=== PATIENT | male | born 1935 | race African-American/Black ===

== ENCOUNTER 2016-08-06 21:00 | Inpatient (IN) | payer OTHER ==
[~2016-08-06] VITALS: Ht 170.2 cm; Wt 88.0 kg
[~2016-08-06 21:00] MED LIST: CHOL100026 PO; FOLI-43 PO; OMEP20CA10 PO; VITAMIN B PO
[2016-08-06 21:46] LABS: BASOPHILS % 0.8 % (0.0-2.0); HEMATOCRIT. 46.6 % (42.0-52.0); HEMOGLOBIN. 15.6 g/dL (14.0-18.0); LYMPHOCYTES % 20.4 % (20.0-50.0); MEAN CORPUSCULAR HEMOGLOBIN 30.2 pg (28.0-32.0); MEAN CORPUSCULAR HGB CONC 33.4 g/dL (31.0-37.0); MEAN CORPUSCULAR VOLUME 90.3 fL (80.0-94.0); MEAN PLATELET VOLUME 9.4 fl (7.4-10.4); MONOCYTES % 8.9 % (2.0-8.0); NEUTROPHILS % 68.9 % (40.0-76.0); PLATELET 124 x1000/uL (130-400); RED BLOOD CELL COUNT 5.16 mill/uL (4.7-6.1); RED CELL DISTRIBUTION WIDTH 16.2 % (11.6-14.6); WHITE BLOOD COUNT 5.1 x1000/uL (4.5-11.0)
[2016-08-06 21:47] LABS: CHLORIDE 96 mEq/L (98-107)
[2016-08-06 21:49] LABS: INDEX HEMOLYSI 1 (1-3); INDEX ICTERIC 1 (1-4); INDEX LIPEMIC 1 (1-3)
[2016-08-06 21:50] LABS: INR 2.7; PROTHROMBIN TIME 27.8 sec
[2016-08-06 21:59] LABS: ALANINE AMINOTRANSFERASE 46 IU/L (13-61); ALBUMIN 3.3 g/dL (3.4-5.0); ANION GAP 16; CALCIUM 8.7 mg/dL (8.5-10.1); CARBON DIOXIDE 21 mEq/L (21-32); LIPASE 390 IU/L (73-393); NT PRO B-TYPE NATRIURETIC PEP 10496 pg/mL (5-125); TROPONIN I 0.05 ng/mL (0.00-0.04); UREA NITROGEN BLOOD 22 mg/dL (7-21); eGFR 55 mL/min (>60)
[2016-08-06] MEDS ORDERED: LORAZEPAM 1MG TABLET PO ONE (22:15)
[2016-08-06] MEDS ORDERED: FUROSEMIDE 40MG/4ML VIAL IVP ONE (22:15)
[2016-08-06] MEDS ORDERED: ASPIRIN 81MG TABLET PO ONE (23:15)
[2016-08-07] MEDS ORDERED: LOSA25TA12 PO (02:41)
[2016-08-07] MEDS ORDERED: WARF5TAB73 PO (02:41)
[2016-08-07] MEDS ORDERED: CARV3.1242 PO (02:41)
[2016-08-07] MEDS ORDERED: FURO40TA5 PO (02:41)
[2016-08-07] MEDS ORDERED: ASPI-1035 PO (02:41)
[2016-08-07 03:00] VITALS: BP 101/75
[2016-08-07] MEDS ORDERED: ACETAMINOPHEN 325MG TABLET PO PRN (03:00)
[2016-08-07] MEDS: IPRATROPIUM/ALBUTEROL 0.5-3(2.5)MG/3ML NEB HHN SCH ×6 (04:53→20:58)
[2016-08-07] MEDS ORDERED: [UNRECOGNIZED DRUG - OTHER] PO (07:25)
[2016-08-07] MEDS ORDERED: WARF4TAB39 PO (07:25)
[2016-08-07 08:00] VITALS: BP 100/68
[2016-08-07] MEDS: CHOLECALCIFEROL (D3) 1000 UNIT TABLET PO SCH (08:55)
[2016-08-07] MEDS: CARVEDILOL 3.125 MG TABLET PO SCH ×2 (08:55→17:00)
[2016-08-07] MEDS: FOLIC ACID 1MG TABLET PO SCH (08:55)
[2016-08-07] MEDS: ASPIRIN 81MG EC TABLET PO SCH (08:55)
[2016-08-07] MEDS: LOSARTAN POTASSIUM 25 MG TABLET PO SCH (08:56)
[2016-08-07] MEDS: FAMOTIDINE 20MG TABLET PO SCH (08:59)
[2016-08-07] MEDS ORDERED: OMEPRAZOLE 20MG CAPSULE EXTENDED RELEASE PO SCH (09:00)
[2016-08-07] MEDS ORDERED: FUROSEMIDE 40MG/4ML VIAL IVP SCH (09:00)
[2016-08-07 12:00] VITALS: BP 95/72
[2016-08-07] MEDS ORDERED: AMIO200T39 PO (12:25)
[2016-08-07] MEDS ORDERED: CLONIDINE 0.1MG TABLET PO PRN (13:00)
[2016-08-07 16:00] VITALS: BP 101/84
[2016-08-07] MEDS: POTASSIUM CHLORIDE 20MEQ TABLET SR PO SCH (17:19)
[2016-08-07] MEDS: FUROSEMIDE 40MG/4ML VIAL IVP SCH (17:20)
[2016-08-07] MEDS ORDERED: WARFARIN SODIUM 2.5MG TABLET PO NR (18:00)
[2016-08-07 20:00] VITALS: BP 100/72
[2016-08-08] VITALS: BP 107/78
[2016-08-08] MEDS: IPRATROPIUM/ALBUTEROL 0.5-3(2.5)MG/3ML NEB HHN SCH ×6 (00:53→20:23)
[2016-08-08] MEDS ORDERED: LORAZEPAM 1MG TABLET PO NR (01:15)
[2016-08-08 04:00] VITALS: BP 103/77
[2016-08-08 05:48] LABS: D-DIMER 0.45 mg/L FEU (<0.50); INR 2.5; PROTHROMBIN TIME 26.3 sec
[2016-08-08] MEDS: FUROSEMIDE 40MG/4ML VIAL IVP SCH ×2 (06:20→16:42)
[2016-08-08 07:07] LABS: CHLORIDE 96 mEq/L (98-107); INDEX HEMOLYSI 1 (1-3); INDEX ICTERIC 1 (1-4); INDEX LIPEMIC 1 (1-3)
[2016-08-08 07:20] LABS: ALANINE AMINOTRANSFERASE 39 IU/L (13-61); ANION GAP 15; CALCIUM 8.4 mg/dL (8.5-10.1); CARBON DIOXIDE 27 mEq/L (21-32); CREATINE KINASE 226 IU/L (39-308); HDL CHOLESTEROL 42 mg/dL (40-59); LDL CHOLESTEROL 82 mg/dL (5-100); MAGNESIUM 2.1 mg/dL (1.8-2.4); NT PRO B-TYPE NATRIURETIC PEP 10863 pg/mL (5-125); TRIGLYCERIDE 46 mg/dL (0-150); TROPONIN I 0.05 ng/mL (0.00-0.04); UREA NITROGEN BLOOD 21 mg/dL (7-21); eGFR 47 mL/min (>60)
[2016-08-08 07:23] LABS: BASOPHILS % 0.9 % (0.0-2.0); EOSINOPHILS % 1.3 % (0.0-5.0); HEMATOCRIT. 45.7 % (42.0-52.0); HEMOGLOBIN. 15.1 g/dL (14.0-18.0); MEAN CORPUSCULAR HGB CONC 33.1 g/dL (31.0-37.0); MEAN CORPUSCULAR VOLUME 90.7 fL (80.0-94.0); MONOCYTES % 10.6 % (2.0-8.0); NEUTROPHILS % 66.2 % (40.0-76.0); RED BLOOD CELL COUNT 5.04 mill/uL (4.7-6.1); RED CELL DISTRIBUTION WIDTH 16.1 % (11.6-14.6); WHITE BLOOD COUNT 5.2 x1000/uL (4.5-11.0)
[2016-08-08 07:50] LABS: DIFFERENTIAL COMMENT 1
[2016-08-08 08:00] VITALS: BP 128/88
[2016-08-08] MEDS: FOLIC ACID 1MG TABLET PO SCH (08:56)
[2016-08-08] MEDS: CHOLECALCIFEROL (D3) 1000 UNIT TABLET PO SCH (08:56)
[2016-08-08] MEDS: LOSARTAN POTASSIUM 25 MG TABLET PO SCH (08:56)
[2016-08-08] MEDS: FAMOTIDINE 20MG TABLET PO SCH (08:56)
[2016-08-08] MEDS: ASPIRIN 81MG EC TABLET PO SCH (08:56)
[2016-08-08] MEDS: CARVEDILOL 3.125 MG TABLET PO SCH ×2 (08:57→16:41)
[2016-08-08] MEDS: POTASSIUM CHLORIDE 20MEQ TABLET SR PO SCH ×2 (09:46→16:44)
[2016-08-08 11:40] LABS: PLATELET 81 x1000/uL (130-400)
[2016-08-08 12:00] VITALS: BP_SYST 112; BP_SYST 94; BP_DIAS 56; BP_DIAS 83
[2016-08-08 17:28] VITALS: BP 91/67
[2016-08-08] MEDS ORDERED: WARFARIN SODIUM 2.5MG TABLET PO NR (18:00)
[2016-08-08 20:00] VITALS: BP 93/70
[2016-08-08] MEDS: TEMAZEPAM 15MG CAPSULE PO PRN (22:12)
[2016-08-09] VITALS: BP 90/69
[2016-08-09] MEDS: IPRATROPIUM/ALBUTEROL 0.5-3(2.5)MG/3ML NEB HHN SCH ×6 (00:08→19:40)
[2016-08-09 04:00] VITALS: BP 91/66
[2016-08-09] MEDS: FUROSEMIDE 40MG/4ML VIAL IVP SCH ×2 (06:21→17:37)
[2016-08-09 06:26] LABS: INR 2.4; PROTHROMBIN TIME 24.9 sec
[2016-08-09 06:48] LABS: BASOPHILS % 1.1 % (0.0-2.0); EOSINOPHILS % 3.1 % (0.0-5.0); HEMATOCRIT. 45.4 % (42.0-52.0); HEMOGLOBIN. 15.1 g/dL (14.0-18.0); LYMPHOCYTES % 20.5 % (20.0-50.0); MEAN CORPUSCULAR HEMOGLOBIN 30.1 pg (28.0-32.0); MEAN CORPUSCULAR HGB CONC 33.3 g/dL (31.0-37.0); MEAN CORPUSCULAR VOLUME 90.3 fL (80.0-94.0); MONOCYTES % 10.7 % (2.0-8.0); NEUTROPHILS % 64.6 % (40.0-76.0); RED BLOOD CELL COUNT 5.03 mill/uL (4.7-6.1); RED CELL DISTRIBUTION WIDTH 15.7 % (11.6-14.6); WHITE BLOOD COUNT 4.9 x1000/uL (4.5-11.0)
[2016-08-09 07:23] LABS: CHLORIDE 98 mEq/L (98-107); INDEX HEMOLYSI 1 (1-3); INDEX ICTERIC 1 (1-4); INDEX LIPEMIC 1 (1-3)
[2016-08-09 07:27] LABS: DIFFERENTIAL COMMENT 1
[2016-08-09 07:37] LABS: ALANINE AMINOTRANSFERASE 32 IU/L (13-61); ALBUMIN 3.1 g/dL (3.4-5.0); ANION GAP 13; CALCIUM 8.6 mg/dL (8.5-10.1); CARBON DIOXIDE 27 mEq/L (21-32); MAGNESIUM 2.1 mg/dL (1.8-2.4); NT PRO B-TYPE NATRIURETIC PEP 7295 pg/mL (5-125); PHOSPHORUS 3.7 mg/dL (2.5-4.9); TROPONIN I 0.05 ng/mL (0.00-0.04); UREA NITROGEN BLOOD 20 mg/dL (7-21); eGFR 47 mL/min (>60)
[2016-08-09 08:00] VITALS: BP 99/72
[2016-08-09] MEDS: CARVEDILOL 3.125 MG TABLET PO SCH ×2 (08:40→17:00)
[2016-08-09] MEDS: FAMOTIDINE 20MG TABLET PO SCH (08:41)
[2016-08-09] MEDS: CHOLECALCIFEROL (D3) 1000 UNIT TABLET PO SCH (08:41)
[2016-08-09] MEDS: FOLIC ACID 1MG TABLET PO SCH (08:41)
[2016-08-09] MEDS: ASPIRIN 81MG EC TABLET PO SCH (08:41)
[2016-08-09] MEDS: LOSARTAN POTASSIUM 25 MG TABLET PO SCH (08:41)
[2016-08-09] MEDS: POTASSIUM CHLORIDE 20MEQ TABLET SR PO SCH ×2 (08:41→17:37)
[2016-08-09 12:00] VITALS: BP 91/66
[2016-08-09] MEDS: AMIODARONE HCL 200 MG TABLET PO SCH ×2 (12:37→21:24)
[2016-08-09 16:00] VITALS: BP 107/62
[2016-08-09] MEDS ORDERED: WARFARIN SODIUM 5MG TABLET PO SCH (18:00)
[2016-08-09 20:00] VITALS: BP 112/75
[2016-08-09] MEDS: TEMAZEPAM 15MG CAPSULE PO PRN (21:24)
[2016-08-10] VITALS: BP 111/88
[2016-08-10] MEDS: IPRATROPIUM/ALBUTEROL 0.5-3(2.5)MG/3ML NEB HHN SCH ×6 (00:39→20:50)
[2016-08-10 04:00] VITALS: BP 95/71
[2016-08-10 06:03] LABS: BASOPHILS % 1.2 % (0.0-2.0); EOSINOPHILS % 2.5 % (0.0-5.0); HEMOGLOBIN. 15.7 g/dL (14.0-18.0); LYMPHOCYTES % 26.4 % (20.0-50.0); MEAN CORPUSCULAR HEMOGLOBIN 30.2 pg (28.0-32.0); MEAN CORPUSCULAR HGB CONC 33.3 g/dL (31.0-37.0); MEAN CORPUSCULAR VOLUME 90.6 fL (80.0-94.0); MEAN PLATELET VOLUME 8.5 fl (7.4-10.4); MONOCYTES % 11.5 % (2.0-8.0); NEUTROPHILS % 58.4 % (40.0-76.0); PLATELET 155 x1000/uL (130-400); RED BLOOD CELL COUNT 5.19 mill/uL (4.7-6.1); RED CELL DISTRIBUTION WIDTH 16.1 % (11.6-14.6); WHITE BLOOD COUNT 4.8 x1000/uL (4.5-11.0)
[2016-08-10] MEDS: FUROSEMIDE 40MG/4ML VIAL IVP SCH (06:03)
[2016-08-10 06:19] LABS: INR 2.4; PROTHROMBIN TIME 25.4 sec
[2016-08-10 07:00] LABS: ALANINE AMINOTRANSFERASE 31 IU/L (13-61); ALBUMIN 3.1 g/dL (3.4-5.0); ANION GAP 12; CALCIUM 8.6 mg/dL (8.5-10.1); CARBON DIOXIDE 29 mEq/L (21-32); CHLORIDE 97 mEq/L (98-107); INDEX HEMOLYSI 1 (1-3); INDEX ICTERIC 1 (1-4); INDEX LIPEMIC 1 (1-3); MAGNESIUM 2.1 mg/dL (1.8-2.4); NT PRO B-TYPE NATRIURETIC PEP 8778 pg/mL (5-125); UREA NITROGEN BLOOD 20 mg/dL (7-21); eGFR 51 mL/min (>60)
[2016-08-10 08:00] VITALS: BP 93/64
[2016-08-10] MEDS: AMIODARONE HCL 200 MG TABLET PO SCH ×2 (08:26→20:37)
[2016-08-10] MEDS: CHOLECALCIFEROL (D3) 1000 UNIT TABLET PO SCH (08:26)
[2016-08-10] MEDS: FAMOTIDINE 20MG TABLET PO SCH (08:26)
[2016-08-10] MEDS: FOLIC ACID 1MG TABLET PO SCH (08:26)
[2016-08-10] MEDS: ASPIRIN 81MG EC TABLET PO SCH (08:26)
[2016-08-10] MEDS: POTASSIUM CHLORIDE 20MEQ TABLET SR PO SCH ×2 (08:26→16:36)
[2016-08-10] MEDS: CARVEDILOL 3.125 MG TABLET PO SCH (08:28)
[2016-08-10] MEDS: LOSARTAN POTASSIUM 25 MG TABLET PO SCH (08:29)
[2016-08-10 12:00] VITALS: BP 97/71
[2016-08-10 16:00] VITALS: BP_SYST 119; BP_SYST 98; BP_DIAS 65; BP_DIAS 72
[2016-08-10 20:00] VITALS: BP 96/68
[2016-08-10] MEDS: TEMAZEPAM 15MG CAPSULE PO PRN (20:48)
[2016-08-11] VITALS (7 sets, daily range): BP systolic 98–109; BP diastolic 69–79
[2016-08-11] MEDS: IPRATROPIUM/ALBUTEROL 0.5-3(2.5)MG/3ML NEB HHN SCH ×5 (01:02→16:13)
[2016-08-11 06:23] LABS: BASOPHILS % 0.8 % (0.0-2.0); EOSINOPHILS % 2.2 % (0.0-5.0); LYMPHOCYTES % 28.4 % (20.0-50.0); MEAN CORPUSCULAR HEMOGLOBIN 30.1 pg (28.0-32.0); MEAN CORPUSCULAR HGB CONC 33.3 g/dL (31.0-37.0); MEAN CORPUSCULAR VOLUME 90.3 fL (80.0-94.0); MONOCYTES % 11.4 % (2.0-8.0); NEUTROPHILS % 57.2 % (40.0-76.0); RED BLOOD CELL COUNT 5.32 mill/uL (4.7-6.1); RED CELL DISTRIBUTION WIDTH 16.3 % (11.6-14.6); WHITE BLOOD COUNT 4.8 x1000/uL (4.5-11.0)
[2016-08-11 06:24] LABS: INR 2.4; PROTHROMBIN TIME 24.9 sec
[2016-08-11 06:36] LABS: DIFFERENTIAL COMMENT 1
[2016-08-11 07:01] LABS: CALCIUM 8.9 mg/dL (8.5-10.1); MAGNESIUM 2.1 mg/dL (1.8-2.4)
[2016-08-11] MEDS: FAMOTIDINE 20MG TABLET PO SCH (09:38)
[2016-08-11] MEDS: FOLIC ACID 1MG TABLET PO SCH (09:38)
[2016-08-11] MEDS: AMIODARONE HCL 200 MG TABLET PO SCH (09:38)
[2016-08-11] MEDS: ASPIRIN 81MG EC TABLET PO SCH (09:38)
[2016-08-11] MEDS: CHOLECALCIFEROL (D3) 1000 UNIT TABLET PO SCH (09:38)
[2016-08-11] MEDS: POTASSIUM CHLORIDE 20MEQ TABLET SR PO SCH (09:38)
[2016-08-11] MEDS ORDERED: FUROSEMIDE 20MG TABLET PO SCH (11:30)
[2016-08-11] MEDS ORDERED: WARFARIN SODIUM 2.5MG TABLET PO SCH (18:00)
[2016-08-11] MEDS ORDERED: CARVEDILOL 3.125 MG TABLET PO SCH (21:00)
== END 2016-08-11 16:20 | disposition home or self-care (01) | DRG 291 ==
LOC: ER 22:27 → 7WST 23:08 → OBSVTOIN 23:08 → INTOOBSV 23:08
PROVIDERS: ADMIT Internal Medicine; ATTEND Internal Medicine
DX: I13.0 Hypertensive heart and chronic kidney disease with heart failure and stage 1 through stage 4 chronic kidney disease, or unspecified chronic kidney disease (principal); I50.23 Acute on chronic systolic (congestive) heart failure; E87.1 Hypo-osmolality and hyponatremia; I82.509 Chronic embolism and thrombosis of unspecified deep veins of unspecified lower extremity; I82.432 Acute embolism and thrombosis of left popliteal vein; N17.9 Acute kidney failure, unspecified; J44.1 Chronic obstructive pulmonary disease with (acute) exacerbation; I48.3 Typical atrial flutter; I27.2 Other secondary pulmonary hypertension; I35.0 Nonrheumatic aortic (valve) stenosis; I42.0 Dilated cardiomyopathy; R26.2 Difficulty in walking, not elsewhere classified; E78.5 Hyperlipidemia, unspecified; F10.10 Alcohol abuse, uncomplicated; I48.91 Unspecified atrial fibrillation; I70.0 Atherosclerosis of aorta; N18.9 Chronic kidney disease, unspecified; Z86.711 Personal history of pulmonary embolism; Z95.810 Presence of automatic (implantable) cardiac defibrillator; Z79.899 Other long term (current) drug therapy
CPT/HCPCS: 36415; 71010; 80048; 80053; 80061; 82550; 82553; 83690; 83735; 83880; 84100; 84443; 84484; 85025; 85379; 85610; 93005; 93970; 94640; 96374; 99285; A6261; J1940; J7620

== ENCOUNTER 2016-08-19 15:58 | Emergency (ER) | payer OTHER ==
[~2016-08-19] VITALS: Ht 170.2 cm; Wt 84.0 kg
[~2016-08-19 15:58] MED LIST changes: +AMIO200T39 PO; +ASPI-1035 PO; +CARV3.1242 PO; +LOSA25TA12 PO; +WARF5TAB73 PO
[2016-08-19 17:22] LABS: PROTHROMBIN TIME 49.1 sec
[2016-08-19 17:25] LABS: TROPONIN I 0.06 ng/mL (0.00-0.04)
[2016-08-19 17:28] LABS: INR 4.7
[2016-08-19 17:57] LABS: BASOPHILS % 0.7 % (0.0-2.0); EOSINOPHILS % 0.9 % (0.0-5.0); HEMATOCRIT. 44.9 % (42.0-52.0); LYMPHOCYTES % 18.9 % (20.0-50.0); MEAN CORPUSCULAR HGB CONC 33.5 g/dL (31.0-37.0); MEAN CORPUSCULAR VOLUME 89.6 fL (80.0-94.0); MEAN PLATELET VOLUME 8.6 fl (7.4-10.4); NEUTROPHILS % 71.5 % (40.0-76.0); RED BLOOD CELL COUNT 5.02 mill/uL (4.7-6.1); RED CELL DISTRIBUTION WIDTH 16.5 % (11.6-14.6)
[2016-08-19 18:04] LABS: PLATELET 113 x1000/uL (130-400)
[2016-08-19] MEDS ORDERED: FUROSEMIDE 40MG/4ML VIAL IVP ONE (19:00)
[2016-08-19 19:48] VITALS: BP 117/81
[2016-08-19 20:40] LABS: *AMPHETAMINES SCREEN URINE NEGATIVE (NEGATIVE); *BARBITURATES SCREEN URINE NEGATIVE (NEGATIVE); *BENZODIAZEPINES SCREEN URINE NEGATIVE (NEGATIVE); *COCAINE SCREEN URINE NEGATIVE (NEGATIVE); CANNABINOID URINE SCREEN NEGATIVE (NEGATIVE); ECSTASY MDMA SCREEN URINE NEGATIVE (NEGATIVE); METHADONE URINE SCREEN NEGATIVE (NEGATIVE); OPIATES URINE SCREEN NEGATIVE (NEGATIVE); PHENCYCLIDINE URINE SCREEN NEGATIVE (NEGATIVE)
== END 2016-08-19 20:38 | disposition home or self-care (01) ==
LOC: ER 16:48
DX: I11.0 Hypertensive heart disease with heart failure (principal); I50.9 Heart failure, unspecified; R00.0 Tachycardia, unspecified; E11.9 Type 2 diabetes mellitus without complications; Z71.89 Other specified counseling; Z79.01 Long term (current) use of anticoagulants; Z79.899 Other long term (current) drug therapy
CPT/HCPCS: 36415; 71010; 80048; 80305; 83880; 84484; 85025; 85610; 93005; 96374; 99285; J1940

== ENCOUNTER 2016-08-31 19:40 | Observation (INO) | payer OTHER ==
[~2016-08-31] VITALS: Ht 170.2 cm; Wt 82.1 kg
[2016-08-31 21:47] LABS: BASOPHILS % 0.9 % (0.0-2.0); EOSINOPHILS % 0.8 % (0.0-5.0); HEMATOCRIT. 46.3 % (42.0-52.0); HEMOGLOBIN. 15.6 g/dL (14.0-18.0); MEAN CORPUSCULAR HEMOGLOBIN 29.7 pg (28.0-32.0); MEAN CORPUSCULAR VOLUME 88.2 fL (80.0-94.0); MONOCYTES % 9.2 % (2.0-8.0); NEUTROPHILS % 63.1 % (40.0-76.0); RED BLOOD CELL COUNT 5.25 mill/uL (4.7-6.1); RED CELL DISTRIBUTION WIDTH 16.6 % (11.6-14.6)
[2016-08-31 22:02] LABS: CARBON DIOXIDE 24 mEq/L (21-32); CHLORIDE 100 mEq/L (98-107); TROPONIN I 0.04 ng/mL (0.00-0.04)
[2016-08-31 22:16] LABS: PARTIAL THROMBOPLASTIN TIME 41.9 sec (24.0-34.0); PROTHROMBIN TIME 61.6 sec
[2016-08-31 22:20] LABS: INR 5.9
[2016-08-31] MEDS ORDERED: FUROSEMIDE 40MG/4ML VIAL IVP ONE (23:00)
[2016-09-01 00:30] VITALS: BP 101/73
[2016-09-01] MEDS ORDERED: FURO-151 PO (03:52)
[2016-09-01 04:00] VITALS: BP 104/75
[2016-09-01 06:56] LABS: BASOPHILS % 0.5 % (0.0-2.0); HEMATOCRIT. 43.5 % (42.0-52.0); HEMOGLOBIN. 14.6 g/dL (14.0-18.0); LYMPHOCYTES % 27.5 % (20.0-50.0); MEAN CORPUSCULAR HEMOGLOBIN 29.5 pg (28.0-32.0); MONOCYTES % 10.6 % (2.0-8.0); RED BLOOD CELL COUNT 4.95 mill/uL (4.7-6.1); RED CELL DISTRIBUTION WIDTH 16.3 % (11.6-14.6)
[2016-09-01 07:15] LABS: PARTIAL THROMBOPLASTIN TIME 41.4 sec (24.0-34.0)
[2016-09-01 07:20] LABS: PROTHROMBIN TIME 52.3 sec
[2016-09-01 07:51] LABS: NEUTROPHILS % 60.4 % (40.0-76.0)
[2016-09-01 08:00] VITALS: BP 106/81
[2016-09-01 08:41] LABS: BG BASE EXCESS 1.6 mmol/L (-2.0-2.0); BG CARBOXYHEMOGLOBIN 1.2 % (0.5-1.5); BG DEOXYHEMOGLOBIN 9.2 % (0.0-5.0); BG FRACTION INSPIRED OXYGEN 21; BG HCO3 ACT 26.2 mmol/L (22.0-26.0); BG METHEMOGLOBIN 0.3 % (0.0-1.5); BG OXYGEN SATURATION 90.7 % (92.0-98.5); BG OXYHEMOGLOBIN 89.3 % (94.0-97.0); BG PCO2 41.2 mmHg (35.0-45.0); BG PH 7.421 (7.350-7.450); BG PO2 64.3 mmHg (75.0-100.0); BG SAMPLE SITE LEFT RADIAL; BG TOTAL HEMOGLOBIN 16.2 g/dL (12.0-18.0); BG VENT MODE ROOM AIR
[2016-09-01] MEDS: OMEPRAZOLE 20MG CAPSULE EXTENDED RELEASE PO SCH ×2 (08:49→16:26)
[2016-09-01] MEDS: AMIODARONE HCL 200 MG TABLET PO SCH (08:49)
[2016-09-01] MEDS ORDERED: FUROSEMIDE 40MG TABLET PO SCH (09:00)
[2016-09-01] MEDS: FUROSEMIDE 40MG/4ML VIAL IVP SCH ×2 (10:15→16:26)
[2016-09-01] MEDS: POTASSIUM CHLORIDE 20MEQ TABLET SR PO SCH (10:24)
[2016-09-01 12:00] VITALS: BP 93/67
[2016-09-01 16:00] VITALS: BP 110/91
[2016-09-01 20:00] VITALS: BP 100/77
[2016-09-01] MEDS ORDERED: TEMA15CA46 PO (22:45)
[2016-09-01] MEDS ORDERED: TEMAZEPAM 15MG CAPSULE PO SCH (22:51)
[2016-09-01] MEDS ORDERED: GUAIFENESIN/CODEINE 200-20MG/10ML UDC PO PRN (23:30)
[2016-09-02] VITALS: BP 110/82
[2016-09-02 04:00] VITALS: BP 120/84
[2016-09-02 05:59] LABS: PROTHROMBIN TIME 45.5 sec
[2016-09-02] MEDS: FUROSEMIDE 40MG/4ML VIAL IVP SCH (05:59)
[2016-09-02 06:05] LABS: HEMATOCRIT. 45.6 % (42.0-52.0); HEMOGLOBIN. 15.3 g/dL (14.0-18.0); MEAN CORPUSCULAR HEMOGLOBIN 29.8 pg (28.0-32.0); MEAN CORPUSCULAR VOLUME 88.9 fL (80.0-94.0); RED BLOOD CELL COUNT 5.13 mill/uL (4.7-6.1); RED CELL DISTRIBUTION WIDTH 16.6 % (11.6-14.6)
[2016-09-02 06:43] LABS: CARBON DIOXIDE 26 mEq/L (21-32); CHLORIDE 102 mEq/L (98-107)
[2016-09-02 07:07] LABS: INR 4.3
[2016-09-02 08:00] VITALS: BP 99/77
[2016-09-02 08:58] LABS: MEAN PLATELET VOLUME 64.9 fl (7.4-10.4)
[2016-09-02 08:59] LABS: EOSINOPHILS % 0.5 % (0.0-5.0); LYMPHOCYTES % 10.1 % (20.0-50.0); MONOCYTES % 0.5 % (2.0-8.0)
[2016-09-02] MEDS ORDERED: LOSARTAN POTASSIUM 25 MG TABLET PO SCH (09:00)
[2016-09-02] MEDS ORDERED: CARVEDILOL 3.125 MG TABLET PO SCH (09:00)
[2016-09-02] MEDS: OMEPRAZOLE 20MG CAPSULE EXTENDED RELEASE PO SCH (09:54)
[2016-09-02] MEDS: AMIODARONE HCL 200 MG TABLET PO SCH (09:54)
[2016-09-02] MEDS: POTASSIUM CHLORIDE 20MEQ TABLET SR PO SCH (09:54)
[2016-09-02 10:44] VITALS: BP 99/77
[2016-09-02] MEDS ORDERED: TEMAZEPAM 15MG CAPSULE PO SCH (21:00)
== END 2016-09-02 12:50 | disposition home or self-care (01) ==
LOC: ER 19:40 → 7WST 23:29 → INTOOBSV 23:29
PROVIDERS: ADMIT Internal Medicine; ATTEND Internal Medicine
DX: I11.0 Hypertensive heart disease with heart failure (principal); I50.23 Acute on chronic systolic (congestive) heart failure; I25.10 Atherosclerotic heart disease of native coronary artery without angina pectoris; I42.9 Cardiomyopathy, unspecified; D68.59 Other primary thrombophilia; E78.5 Hyperlipidemia, unspecified; R60.0 Localized edema; T45.515A Adverse effect of anticoagulants, initial encounter; Y92.89 Other specified places as the place of occurrence of the external cause
CPT/HCPCS: 36415; 36600; 71010; 80048; 80053; 82375; 82805; 83690; 83880; 84443; 84484; 85025; 85610; 85730; 93005; 93306; 96374; 96376; 99285; G0378; J1940

== ENCOUNTER 2016-10-08 16:51 | Inpatient (IN) | payer OTHER ==
[~2016-10-08] VITALS: Ht 170.2 cm; Wt 75.0 kg
[~2016-10-08 16:51] MED LIST changes: -AMIO200T39 PO; -ASPI-1035 PO; -CHOL100026 PO; +POTA20TA82 PO; +RIVA10TA PO; +TEMA15CA46 PO; -WARF5TAB73 PO
[2016-10-08] MEDS ORDERED: FUROSEMIDE 40MG/4ML VIAL IV STA (17:28)
[2016-10-08 17:51] LABS: HEMATOCRIT. 49.4 % (42.0-52.0); HEMOGLOBIN. 16.4 g/dL (14.0-18.0); MEAN CORPUSCULAR HEMOGLOBIN 29.6 pg (28.0-32.0); MEAN PLATELET VOLUME 10.1 fl (7.4-10.4); RED BLOOD CELL COUNT 5.55 mill/uL (4.7-6.1); RED CELL DISTRIBUTION WIDTH 19.5 % (11.6-14.6)
[2016-10-08 17:55] LABS: CHLORIDE 105 mEq/L (98-107); INR 1.9; PROTHROMBIN TIME 20.4 sec
[2016-10-08 18:04] LABS: CARBON DIOXIDE 26 mEq/L (21-32); TROPONIN I 0.06 ng/mL (0.00-0.04)
[2016-10-08 18:20] LABS: ATYPICAL LYMPHOCYTES 1
[2016-10-08 18:23] LABS: PLATELET ESTIMATE DECREASED
[2016-10-08 18:25] LABS: PLATELET 64 x1000/uL (130-400)
[2016-10-08 20:00] VITALS: BP 106/74
[2016-10-08 20:58] VITALS: BP 106/74
[2016-10-08] MEDS ORDERED: RIVA20TA PO (20:58)
[2016-10-08] MEDS ORDERED: FURO40TA5 PO (20:58)
[2016-10-08] MEDS ORDERED: AMLO2.5T45 PO (20:58)
[2016-10-08] MEDS ORDERED: LEVO500T89 PO (20:58)
[2016-10-08] MEDS ORDERED: ATOR20TA65 PO (20:58)
[2016-10-08] MEDS ORDERED: FUROSEMIDE 40MG/4ML VIAL IVP ONE (21:45)
[2016-10-08] MEDS ORDERED: OMEPRAZOLE 20MG CAPSULE EXTENDED RELEASE PO SCH (21:45)
[2016-10-08] MEDS ORDERED: ATORVASTATIN CALCIUM 20MG TABLET PO SCH (21:45)
[2016-10-09] VITALS: BP 100/71
[2016-10-09 04:00] VITALS: BP 102/80
[2016-10-09 06:54] LABS: BASOPHILS % 0.6 % (0.0-2.0); EOSINOPHILS % 0.6 % (0.0-5.0); HEMATOCRIT. 45.2 % (42.0-52.0); HEMOGLOBIN. 15.2 g/dL (14.0-18.0); LYMPHOCYTES % 28.5 % (20.0-50.0); MEAN CORPUSCULAR VOLUME 89.1 fL (80.0-94.0); MEAN PLATELET VOLUME 9.4 fl (7.4-10.4); MONOCYTES % 10.5 % (2.0-8.0); NEUTROPHILS % 59.8 % (40.0-76.0); RED BLOOD CELL COUNT 5.07 mill/uL (4.7-6.1)
[2016-10-09 07:14] LABS: CREATINE KINASE MB FRACTION 3.3 ng/mL (0.5-3.6); TROPONIN I 0.05 ng/mL (0.00-0.04)
[2016-10-09 08:00] VITALS: BP 103/75
[2016-10-09] MEDS ORDERED: FUROSEMIDE 80MG TABLET PO SCH (09:00)
[2016-10-09] MEDS: CARVEDILOL 3.125 MG TABLET PO SCH ×3 (09:00→21:00)
[2016-10-09] MEDS: LISINOPRIL 2.5MG TABLET PO SCH ×2 (09:00→09:45)
[2016-10-09] MEDS: OMEPRAZOLE 20MG CAPSULE EXTENDED RELEASE PO SCH ×2 (09:46→21:09)
[2016-10-09] MEDS: ATORVASTATIN CALCIUM 20MG TABLET PO SCH ×2 (09:46→21:10)
[2016-10-09 12:00] VITALS: BP 98/75
[2016-10-09 13:14] LABS: INR 1.7; PROTHROMBIN TIME 18.1 sec
[2016-10-09] MEDS ORDERED: POTASSIUM CHLORIDE 20MEQ TABLET SR PO SCH (13:30)
[2016-10-09 16:00] VITALS: BP 104/77
[2016-10-09] MEDS: FUROSEMIDE 100MG/10ML VIAL IV SCH (16:48)
[2016-10-09] MEDS ORDERED: RIVAROXABAN 15 MG TABLET PO SCH (17:00)
[2016-10-09 20:00] VITALS: BP 108/76
[2016-10-09] MEDS ORDERED: TEMAZEPAM 15MG CAPSULE PO PRN (21:00)
[2016-10-10] VITALS: BP 99/72
[2016-10-10 04:00] VITALS: BP 90/68
[2016-10-10 06:51] LABS: HEMATOCRIT. 46.9 % (42.0-52.0); HEMOGLOBIN. 15.7 g/dL (14.0-18.0); MEAN CORPUSCULAR VOLUME 89.2 fL (80.0-94.0); RED BLOOD CELL COUNT 5.25 mill/uL (4.7-6.1); RED CELL DISTRIBUTION WIDTH 18.7 % (11.6-14.6)
[2016-10-10 07:13] LABS: CHLORIDE 104 mEq/L (98-107)
[2016-10-10 07:25] LABS: CARBON DIOXIDE 27 mEq/L (21-32); TROPONIN I 0.04 ng/mL (0.00-0.04)
[2016-10-10 08:30] VITALS: BP 101/74
[2016-10-10] MEDS: LISINOPRIL 2.5MG TABLET PO SCH (09:00)
[2016-10-10] MEDS: CARVEDILOL 3.125 MG TABLET PO SCH ×2 (09:00→20:54)
[2016-10-10] MEDS: POTASSIUM CHLORIDE 20MEQ TABLET SR PO SCH ×2 (09:20→18:31)
[2016-10-10] MEDS: FUROSEMIDE 100MG/10ML VIAL IV SCH ×2 (09:20→18:31)
[2016-10-10] MEDS: OMEPRAZOLE 20MG CAPSULE EXTENDED RELEASE PO SCH ×2 (09:20→20:53)
[2016-10-10 10:48] LABS: PLATELET ESTIMATE NORMAL
[2016-10-10 12:00] VITALS: BP 92/61
[2016-10-10 16:55] VITALS: BP 98/77
[2016-10-10 20:00] VITALS: BP 98/77
[2016-10-10] MEDS: ATORVASTATIN CALCIUM 20MG TABLET PO SCH (20:53)
[2016-10-11] VITALS: BP 101/74
[2016-10-11 04:00] VITALS: BP 94/62
[2016-10-11 06:51] LABS: BASOPHILS % 0.5 % (0.0-2.0); EOSINOPHILS % 0.7 % (0.0-5.0); HEMATOCRIT. 46.4 % (42.0-52.0); HEMOGLOBIN. 15.6 g/dL (14.0-18.0); LYMPHOCYTES % 25.7 % (20.0-50.0); MEAN CORPUSCULAR HEMOGLOBIN 29.8 pg (28.0-32.0); MEAN CORPUSCULAR VOLUME 88.8 fL (80.0-94.0); MONOCYTES % 8.4 % (2.0-8.0); NEUTROPHILS % 64.7 % (40.0-76.0); RED BLOOD CELL COUNT 5.23 mill/uL (4.7-6.1); RED CELL DISTRIBUTION WIDTH 19.1 % (11.6-14.6)
[2016-10-11 08:00] VITALS: BP 105/71
[2016-10-11 08:11] LABS: CARBON DIOXIDE 24 mEq/L (21-32); CHLORIDE 104 mEq/L (98-107)
[2016-10-11] MEDS: OMEPRAZOLE 20MG CAPSULE EXTENDED RELEASE PO SCH ×2 (08:36→21:35)
[2016-10-11] MEDS: FUROSEMIDE 100MG/10ML VIAL IV SCH ×2 (08:36→17:00)
[2016-10-11] MEDS: POTASSIUM CHLORIDE 20MEQ TABLET SR PO SCH ×2 (08:37→17:00)
[2016-10-11] MEDS: LISINOPRIL 2.5MG TABLET PO SCH (08:38)
[2016-10-11] MEDS: CARVEDILOL 3.125 MG TABLET PO SCH ×2 (08:38→21:00)
[2016-10-11 08:59] LABS: PLATELET 50 x1000/uL (130-400)
[2016-10-11 10:00] LABS: MEAN PLATELET VOLUME 9.3 fl (7.4-10.4); PLATELET 72 x1000/uL (130-400)
[2016-10-11 11:56] VITALS: BP 96/59
[2016-10-11 12:21] LABS: ANTI-NUCLEAR ANTIBODIES DIRECT Negative (Negative)
[2016-10-11 16:00] VITALS: BP 92/70
[2016-10-11 20:00] VITALS: BP 98/79
[2016-10-11] MEDS: ATORVASTATIN CALCIUM 20MG TABLET PO SCH (21:36)
[2016-10-12] VITALS (7 sets, daily range): BP systolic 89–141; BP diastolic 59–100
[2016-10-12 07:10] LABS: BASOPHILS % 1.2 % (0.0-2.0); EOSINOPHILS % 0.5 % (0.0-5.0); HEMATOCRIT. 46.7 % (42.0-52.0); HEMOGLOBIN. 15.7 g/dL (14.0-18.0); LYMPHOCYTES % 22.7 % (20.0-50.0); MEAN CORPUSCULAR VOLUME 89.2 fL (80.0-94.0); MEAN PLATELET VOLUME 9.4 fl (7.4-10.4); MONOCYTES % 9.6 % (2.0-8.0); RED BLOOD CELL COUNT 5.24 mill/uL (4.7-6.1); RED CELL DISTRIBUTION WIDTH 19.5 % (11.6-14.6)
[2016-10-12] MEDS: CARVEDILOL 3.125 MG TABLET PO SCH ×2 (08:35→21:00)
[2016-10-12] MEDS: POTASSIUM CHLORIDE 20MEQ TABLET SR PO SCH ×2 (08:40→17:25)
[2016-10-12] MEDS: FUROSEMIDE 100MG/10ML VIAL IV SCH ×2 (08:40→17:25)
[2016-10-12] MEDS: OMEPRAZOLE 20MG CAPSULE EXTENDED RELEASE PO SCH ×2 (08:40→22:03)
[2016-10-12] MEDS: LISINOPRIL 2.5MG TABLET PO SCH (08:40)
[2016-10-12 09:06] LABS: DRVVT LA 78.6 sec (0.0-47.0); PTT-LA 38.9 sec (0.0-51.9)
[2016-10-12 11:10] LABS: PLATELET 99 x1000/uL (130-400); PLATELET ESTIMATE DECREASED
[2016-10-12 14:11] LABS: HLA CLASS 1 ANTIBODY Negative (Negative); IIb/IIIa ANTIBODY Positive (Negative); Ia/IIa ANTIBODY Positive (Negative); Ib/IX ANTIBODY Negative (Negative)
[2016-10-12] MEDS: ATORVASTATIN CALCIUM 20MG TABLET PO SCH (22:03)
[2016-10-13] VITALS: BP 97/71
[2016-10-13 04:00] VITALS: BP 95/68
[2016-10-13 08:00] VITALS: BP 106/78
[2016-10-13] MEDS: CARVEDILOL 3.125 MG TABLET PO SCH ×2 (09:00→21:00)
[2016-10-13] MEDS: LISINOPRIL 2.5MG TABLET PO SCH (09:00)
[2016-10-13] MEDS: FUROSEMIDE 100MG/10ML VIAL IV SCH ×2 (09:04→17:00)
[2016-10-13] MEDS: POTASSIUM CHLORIDE 20MEQ TABLET SR PO SCH ×2 (09:04→18:16)
[2016-10-13] MEDS: OMEPRAZOLE 20MG CAPSULE EXTENDED RELEASE PO SCH ×2 (09:05→21:32)
[2016-10-13 09:07] LABS: DRVVT LA CONFIRMATION 1.2 ratio (0.8-1.2); DRVVT MIX LA 52.1 sec (0.0-47.0)
[2016-10-13 09:07] LABS: IMMUNOGLOBULIN A 631 mg/dL (61-437); IMMUNOGLOBULIN G 906 mg/dL (700-1600); IMMUNOGLOBULIN M 34 mg/dL (15-143)
[2016-10-13 12:00] VITALS: BP 94/50
[2016-10-13 16:00] VITALS: BP 96/68
[2016-10-13 20:00] VITALS: BP 104/81
[2016-10-13] MEDS: ATORVASTATIN CALCIUM 20MG TABLET PO SCH (21:32)
[2016-10-13] MEDS ORDERED: FUROSEMIDE 100MG/10ML VIAL IVP NR (21:38)
[2016-10-14] VITALS: BP 100/68
[2016-10-14 04:00] VITALS: BP 101/72
[2016-10-14 06:34] LABS: CARBON DIOXIDE 27 mEq/L (21-32); CHLORIDE 102 mEq/L (98-107)
[2016-10-14 07:11] LABS: LUPUS ANTICOAG INTERPRETATION Comment: (.)
[2016-10-14] MEDS: OMEPRAZOLE 20MG CAPSULE EXTENDED RELEASE PO SCH ×2 (07:40→21:16)
[2016-10-14 08:00] VITALS: BP 108/76
[2016-10-14] MEDS: CARVEDILOL 3.125 MG TABLET PO SCH ×2 (08:58→21:00)
[2016-10-14] MEDS: FUROSEMIDE 100MG/10ML VIAL IV SCH ×2 (08:58→18:18)
[2016-10-14] MEDS: POTASSIUM CHLORIDE 20MEQ TABLET SR PO SCH ×2 (08:58→18:19)
[2016-10-14] MEDS: LISINOPRIL 2.5MG TABLET PO SCH (08:59)
[2016-10-14 10:03] LABS: INR 1.3; PROTHROMBIN TIME 13.5 sec
[2016-10-14 10:42] LABS: HEMATOCRIT. 46.8 % (42.0-52.0); HEMOGLOBIN. 15.8 g/dL (14.0-18.0); MEAN CORPUSCULAR HEMOGLOBIN 29.9 pg (28.0-32.0); RED BLOOD CELL COUNT 5.26 mill/uL (4.7-6.1); RED CELL DISTRIBUTION WIDTH 19.5 % (11.6-14.6)
[2016-10-14 10:43] LABS: NEUTROPHILS % 61.1 % (40.0-76.0); PLATELET 96 x1000/uL (130-400)
[2016-10-14 10:44] LABS: BASOPHILS % 0.5 % (0.0-2.0); EOSINOPHILS % 0.7 % (0.0-5.0); LYMPHOCYTES % 27.3 % (20.0-50.0); MONOCYTES % 10.4 % (2.0-8.0)
[2016-10-14 12:00] VITALS: BP 97/74
[2016-10-14] MEDS ORDERED: SODIUM CHLORIDE 0.9% 10ML VIAL ONE (14:26)
[2016-10-14] MEDS ORDERED: IOHEXOL-350 100 ML BOTTLE ONE (14:26)
[2016-10-14 16:00] VITALS: BP 95/69
[2016-10-14 20:00] VITALS: BP 100/74
[2016-10-14] MEDS: ATORVASTATIN CALCIUM 20MG TABLET PO SCH (21:16)
[2016-10-15] VITALS: BP 105/87
[2016-10-15 04:00] VITALS: BP 93/67
[2016-10-15 08:00] VITALS: BP 104/65
[2016-10-15] MEDS: LISINOPRIL 2.5MG TABLET PO SCH (09:00)
[2016-10-15] MEDS: CARVEDILOL 3.125 MG TABLET PO SCH ×2 (09:00→20:53)
[2016-10-15] MEDS: OMEPRAZOLE 20MG CAPSULE EXTENDED RELEASE PO SCH ×2 (09:14→20:52)
[2016-10-15] MEDS: POTASSIUM CHLORIDE 20MEQ TABLET SR PO SCH ×2 (09:14→17:11)
[2016-10-15] MEDS: FUROSEMIDE 100MG/10ML VIAL IV SCH ×2 (09:18→17:00)
[2016-10-15 11:52] VITALS: BP 104/50
[2016-10-15 16:00] VITALS: BP 88/64
[2016-10-15 20:00] VITALS: BP 99/72
[2016-10-15] MEDS: ATORVASTATIN CALCIUM 20MG TABLET PO SCH (20:52)
[2016-10-16] VITALS: BP 100/77
[2016-10-16 04:00] VITALS: BP 103/75
[2016-10-16 08:00] VITALS: BP 97/63
[2016-10-16] MEDS: CARVEDILOL 3.125 MG TABLET PO SCH ×2 (08:47→21:00)
[2016-10-16] MEDS: POTASSIUM CHLORIDE 20MEQ TABLET SR PO SCH ×2 (08:49→17:44)
[2016-10-16] MEDS: OMEPRAZOLE 20MG CAPSULE EXTENDED RELEASE PO SCH ×2 (08:49→22:14)
[2016-10-16] MEDS: LISINOPRIL 2.5MG TABLET PO SCH (08:50)
[2016-10-16] MEDS: FUROSEMIDE 100MG/10ML VIAL IV SCH ×2 (09:04→17:43)
[2016-10-16 12:00] VITALS: BP 138/84
[2016-10-16 16:00] VITALS: BP 98/62
[2016-10-16 20:00] VITALS: BP 96/72
[2016-10-16] MEDS: ATORVASTATIN CALCIUM 20MG TABLET PO SCH (22:14)
[2016-10-17] VITALS: BP 94/74
[2016-10-17 04:00] VITALS: BP 99/73
[2016-10-17 08:00] VITALS: BP 99/70
[2016-10-17] MEDS: CARVEDILOL 3.125 MG TABLET PO SCH ×2 (09:00→20:40)
[2016-10-17] MEDS: LISINOPRIL 2.5MG TABLET PO SCH (09:00)
[2016-10-17] MEDS: POTASSIUM CHLORIDE 20MEQ TABLET SR PO SCH ×2 (09:04→17:33)
[2016-10-17] MEDS: OMEPRAZOLE 20MG CAPSULE EXTENDED RELEASE PO SCH ×2 (09:04→20:41)
[2016-10-17] MEDS: FUROSEMIDE 100MG/10ML VIAL IV SCH ×2 (09:05→17:33)
[2016-10-17 12:00] VITALS: BP 97/68
[2016-10-17 16:00] VITALS: BP 100/70
[2016-10-17] MEDS ORDERED: RIVAROXABAN 15 MG TABLET PO SCH (17:00)
[2016-10-17] MEDS: ATORVASTATIN CALCIUM 20MG TABLET PO SCH (20:41)
[2016-10-18] VITALS (8 sets, daily range): BP systolic 88–97; BP diastolic 57–73
[2016-10-18] MEDS: OMEPRAZOLE 20MG CAPSULE EXTENDED RELEASE PO SCH ×2 (07:40→21:05)
[2016-10-18] MEDS: CARVEDILOL 3.125 MG TABLET PO SCH ×2 (09:00→21:00)
[2016-10-18] MEDS: LISINOPRIL 2.5MG TABLET PO SCH (09:00)
[2016-10-18] MEDS: POTASSIUM CHLORIDE 20MEQ TABLET SR PO SCH ×2 (09:52→18:20)
[2016-10-18] MEDS: FUROSEMIDE 100MG/10ML VIAL IV SCH ×2 (09:52→18:20)
[2016-10-18] MEDS ORDERED: ENOXAPARIN 30MG/0.3ML SYR SUBCUT SCH (12:00)
[2016-10-18] MEDS: ATORVASTATIN CALCIUM 20MG TABLET PO SCH (21:05)
== END 2016-10-18 22:15 | DRG 291 ==
LOC: EDBEDREQ 18:23 → ER 18:26 → 7WST 18:46 → INTOOBSV 18:46 → OBSVTOIN 18:46 → ENRESERV 18:49 → ER 19:59
PROVIDERS: ADMIT Internal Medicine; ATTEND Internal Medicine
DX: I13.0 Hypertensive heart and chronic kidney disease with heart failure and stage 1 through stage 4 chronic kidney disease, or unspecified chronic kidney disease (principal); I50.43 Acute on chronic combined systolic (congestive) and diastolic (congestive) heart failure; I48.92 Unspecified atrial flutter; D68.59 Other primary thrombophilia; I82.5Z2 Chronic embolism and thrombosis of unspecified deep veins of left distal lower extremity; I42.0 Dilated cardiomyopathy; I27.2 Other secondary pulmonary hypertension; D69.6 Thrombocytopenia, unspecified; I35.2 Nonrheumatic aortic (valve) stenosis with insufficiency; I48.0 Paroxysmal atrial fibrillation; N18.9 Chronic kidney disease, unspecified; M10.9 Gout, unspecified; K74.60 Unspecified cirrhosis of liver; K21.9 Gastro-esophageal reflux disease without esophagitis; J44.9 Chronic obstructive pulmonary disease, unspecified; I25.10 Atherosclerotic heart disease of native coronary artery without angina pectoris; E78.5 Hyperlipidemia, unspecified; D18.03 Hemangioma of intra-abdominal structures; D64.9 Anemia, unspecified; I35.0 Nonrheumatic aortic (valve) stenosis; R16.0 Hepatomegaly, not elsewhere classified; Z87.11 Personal history of peptic ulcer disease; Z86.711 Personal history of pulmonary embolism; Z79.01 Long term (current) use of anticoagulants; Z87.01 Personal history of pneumonia (recurrent); Z79.899 Other long term (current) drug therapy
CPT/HCPCS: 36415; 71010; 74178; 78216; 78582; 80048; 80053; 82550; 82553; 82784; 83605; 83690; 83735; 83880; 84484; 85025; 85049; 85379; 85610; 85613; 85732; 86022; 86038; 86157; 86334; 86803; 87040; 93005; 93970; 96374; 97116; 97163; 99285; A4216; A9558; A9560; J1650; J1940; J7040; Q9967

== ENCOUNTER 2016-10-23 11:24 | Observation (INO) | payer OTHER ==
[~2016-10-23] VITALS: Ht 170.2 cm; Wt 71.7 kg
[~2016-10-23 11:24] MED LIST changes: +AMLO2.5T45 PO; +ATOR20TA65 PO; +FURO40TA5 PO; +LEVO500T89 PO; -RIVA10TA PO; +RIVA20TA PO
[2016-10-23] MEDS ORDERED: NITROGLYCERIN OINT 1GM/INCH UDPKT TD STA (12:10)
[2016-10-23 12:51] LABS: BASOPHILS % 0.4 % (0.0-2.0); CARBON DIOXIDE 23 mEq/L (21-32); CHLORIDE 101 mEq/L (98-107); EOSINOPHILS % 0.2 % (0.0-5.0); HEMATOCRIT. 46.8 % (42.0-52.0); HEMOGLOBIN. 15.7 g/dL (14.0-18.0); MEAN CORPUSCULAR HEMOGLOBIN 30.4 pg (28.0-32.0); MEAN CORPUSCULAR VOLUME 90.5 fL (80.0-94.0); MONOCYTES % 10.5 % (2.0-8.0); NEUTROPHILS % 69.9 % (40.0-76.0); RED BLOOD CELL COUNT 5.17 mill/uL (4.7-6.1); RED CELL DISTRIBUTION WIDTH 20.1 % (11.6-14.6)
[2016-10-23 12:58] LABS: TROPONIN I 0.06 ng/mL (0.00-0.04)
[2016-10-23 13:00] LABS: INR 1.8; PROTHROMBIN TIME 19.1 sec
[2016-10-23 15:54] LABS: CLARITY URINE CLEAR (CLEAR); COLOR URINE DARK YELLOW (YELLOW); GLUCOSE URINE NEGATIVE (NEGATIVE); KETONES URINE TRACE (NEGATIVE); LEUKOCYTE ESTERASE URINE NEGATIVE (NEGATIVE); NITRITE URINE NEGATIVE (NEGATIVE); OCCULT BLOOD URINE NEGATIVE (NEGATIVE); PROTEIN URINE 2+ (NEGATIVE); SPECIFIC GRAVITY URINE 1.023 (1.005-1.030)
[2016-10-23] MEDS ORDERED: IPRATROPIUM/ALBUTEROL 0.5-3(2.5)MG/3ML NEB INH PRN (16:30)
[2016-10-23] MEDS ORDERED: ONDANSETRON HCL 4MG/2ML VIAL IV PRN (16:30)
[2016-10-23] MEDS ORDERED: ACETAMINOPHEN 325MG TABLET PO PRN (16:30)
[2016-10-23] MEDS ORDERED: HYDROCODONE/ACETAMINOPHEN 5/325MG TABLET PO PRN (16:30)
[2016-10-23] MEDS ORDERED: CLONIDINE 0.1MG TABLET PO PRN (16:30)
[2016-10-23] MEDS: POTASSIUM CHLORIDE 20MEQ TABLET SR PO SCH (17:00)
[2016-10-23 20:00] VITALS: BP 110/83
[2016-10-23] MEDS: FUROSEMIDE 40MG/4ML VIAL IV SCH (20:21)
[2016-10-23] MEDS: OMEPRAZOLE 20MG CAPSULE EXTENDED RELEASE PO SCH (20:22)
[2016-10-23] MEDS ORDERED: TEMAZEPAM 15MG CAPSULE PO SCH (21:00)
[2016-10-24] VITALS (8 sets, daily range): BP systolic 88–116; BP diastolic 60–83
[2016-10-24 05:58] LABS: CARBON DIOXIDE 23 mEq/L (21-32); CHLORIDE 101 mEq/L (98-107); HDL CHOLESTEROL 56 mg/dL (40-59); LDL CHOLESTEROL 81 mg/dL (5-100); TROPONIN I 0.07 ng/mL (0.00-0.04)
[2016-10-24 06:12] LABS: HEMATOCRIT. 45.4 % (42.0-52.0); HEMOGLOBIN. 15.5 g/dL (14.0-18.0); MEAN CORPUSCULAR HEMOGLOBIN 30.8 pg (28.0-32.0); MEAN CORPUSCULAR VOLUME 89.9 fL (80.0-94.0); RED BLOOD CELL COUNT 5.05 mill/uL (4.7-6.1); RED CELL DISTRIBUTION WIDTH 20.3 % (11.6-14.6)
[2016-10-24] MEDS: FUROSEMIDE 40MG/4ML VIAL IV SCH ×2 (08:41→18:06)
[2016-10-24] MEDS: OMEPRAZOLE 20MG CAPSULE EXTENDED RELEASE PO SCH ×2 (08:43→18:06)
[2016-10-24] MEDS: POTASSIUM CHLORIDE 20MEQ TABLET SR PO SCH ×2 (08:47→18:06)
[2016-10-24 09:00] LABS: PLATELET ESTIMATE NORMAL
[2016-10-24] MEDS ORDERED: ATORVASTATIN CALCIUM 20MG TABLET PO SCH (09:00)
[2016-10-24] MEDS ORDERED: AMLODIPINE 2.5MG TABLET PO SCH (09:00)
[2016-10-24] MEDS ORDERED: FOLIC ACID 1MG TABLET PO SCH (09:00)
[2016-10-24] MEDS ORDERED: CARVEDILOL 3.125 MG TABLET PO SCH (09:00)
[2016-10-24] MEDS ORDERED: FUROSEMIDE 40MG/4ML VIAL IVP NR (15:15)
[2016-10-24] MEDS ORDERED: RIVAROXABAN 15 MG TABLET PO SCH (17:00)
[2016-10-25] MEDS ORDERED: FAMOTIDINE 20MG TABLET PO SCH (09:00)
== END 2016-10-24 21:50 ==
LOC: ER 12:09 → INTOOBSV 13:59 → 7WST 13:59 → EDBEDREQ 14:02 → EDBEDREQTM 14:02 → ENRESERV 16:49
PROVIDERS: ADMIT Internal Medicine; ATTEND Internal Medicine
DX: I50.43 Acute on chronic combined systolic (congestive) and diastolic (congestive) heart failure (principal); D64.9 Anemia, unspecified; D69.6 Thrombocytopenia, unspecified; E87.2 Acidosis; E87.5 Hyperkalemia; I42.0 Dilated cardiomyopathy; I35.0 Nonrheumatic aortic (valve) stenosis; I82.502 Chronic embolism and thrombosis of unspecified deep veins of left lower extremity; I08.2 Rheumatic disorders of both aortic and tricuspid valves; I13.0 Hypertensive heart and chronic kidney disease with heart failure and stage 1 through stage 4 chronic kidney disease, or unspecified chronic kidney disease; N18.9 Chronic kidney disease, unspecified; I27.2 Other secondary pulmonary hypertension; I48.0 Paroxysmal atrial fibrillation; J44.9 Chronic obstructive pulmonary disease, unspecified; K70.30 Alcoholic cirrhosis of liver without ascites; Z86.711 Personal history of pulmonary embolism; Z86.718 Personal history of other venous thrombosis and embolism
CPT/HCPCS: 36415; 71010; 80053; 80061; 81001; 83605; 83690; 83735; 83880; 84443; 84484; 85025; 85610; 87040; 87086; 93005; 93970; 96374; 96376; 97162; 99285; G0378; J1940; J7620

== ENCOUNTER 2018-06-01 03:11 | Inpatient (IN) | payer OTHER ==
[2018-06-01] VITALS (32 sets, daily range): BP systolic 93–145; BP diastolic 64–98
[~2018-06-01] VITALS: Ht 172.7 cm; Wt 68.5 kg
[~2018-06-01 03:11] MED LIST changes: -LEVO500T89 PO; -LOSA25TA12 PO; -TEMA15CA46 PO; +TEMA15CA5 PO; -VITAMIN B PO
[2018-06-01] MEDS ORDERED: LORAZEPAM 2MG/ML CPJ ONE (03:38)
[2018-06-01] MEDS ORDERED: ONDANSETRON HCL 4MG/2ML INJ IV STA (03:39)
[2018-06-01] MEDS ORDERED: LORAZEPAM 2MG/ML CPJ IV ONE (03:45)
[2018-06-01] MEDS ORDERED: VECURONIUM BROMIDE 10 MG/VIAL IV ONE ×2 (03:45→14:35)
[2018-06-01] MEDS ORDERED: LEVETIRACETAM 500MG PREMIX 100 ML IV ONE (03:45)
[2018-06-01] MEDS ORDERED: PROPOFOL 10MG/ML 100ML 100 ML IV ONE (03:45)
[2018-06-01 04:16] LABS: BASOPHILS % 1.7 % (0.0-2.0); EOSINOPHILS % 2.4 % (0.0-5.0); HEMATOCRIT. 41.5 % (42.0-52.0); LYMPHOCYTES % 22.7 % (20.0-50.0); MEAN CORPUSCULAR HEMOGLOBIN 32.9 pg (28.0-32.0); MEAN CORPUSCULAR VOLUME 97.6 fL (80.0-94.0); MEAN PLATELET VOLUME 8.1 fl (7.4-10.4); MONOCYTES % 9.8 % (2.0-8.0); NEUTROPHILS % 63.4 % (40.0-76.0); PLATELET 150 x1000/uL (130-400); RED BLOOD CELL COUNT 4.25 mill/uL (4.7-6.1)
[2018-06-01 04:21] LABS: CHLORIDE 100 mEq/L (98-107)
[2018-06-01 04:25] LABS: ETHANOL BLOOD < 10 mg/dL
[2018-06-01 04:27] LABS: INR 1.1; PROTHROMBIN TIME 11.5 sec (9.1-11.1)
[2018-06-01 04:30] LABS: CREATINE KINASE 131 IU/L (39-308)
[2018-06-01 05:06] LABS: BG BASE EXCESS 1.1 mmol/L (-2.0-2.0); BG CARBOXYHEMOGLOBIN 1.3 % (0.5-1.5); BG DEOXYHEMOGLOBIN 0.8 % (0.0-5.0); BG FRACTION INSPIRED OXYGEN 50; BG HCO3 ACT 24.4 mmol/L (22.0-26.0); BG METHEMOGLOBIN 0.4 % (0.0-1.5); BG OXYGEN SATURATION 99.2 % (92.0-98.5); BG OXYHEMOGLOBIN 97.5 % (94.0-97.0); BG PCO2 35.3 mmHg (35.0-45.0); BG PEEP (cmH2O) 0 cmH2O; BG PH 7.458 (7.350-7.450); BG PO2 148.8 mmHg (75.0-100.0); BG SAMPLE SITE LEFT RADIAL; BG TIDAL VOLUME(mL) 500 mL; BG TOTAL HEMOGLOBIN 16.7 g/dL (12.0-18.0); BG VENT MODE VENT - A/C; BG VENT RATE 14 set
[2018-06-01] MEDS ORDERED: CEFTRIAXONE 1 G PREMIX 50 ML IV ONE (05:15)
[2018-06-01 05:23] LABS: CLARITY URINE CLEAR (CLEAR); COLOR URINE YELLOW (YELLOW); KETONES URINE NEGATIVE (NEGATIVE); LEUKOCYTE ESTERASE URINE NEGATIVE (NEGATIVE); NITRITE URINE NEGATIVE (NEGATIVE); OCCULT BLOOD URINE TRACE (NEGATIVE); PROTEIN URINE 2+ (NEGATIVE); SPECIFIC GRAVITY URINE 1.006 (1.005-1.030); UROBILINOGEN URINE 0.2 E.U./dL (0.2-1.0)
[2018-06-01 05:31] LABS: *BENZODIAZEPINES SCREEN URINE PRESUMTIVE POSITIVE (NEGATIVE)
[2018-06-01 05:32] LABS: *AMPHETAMINES SCREEN URINE NEGATIVE (NEGATIVE); *COCAINE SCREEN URINE NEGATIVE (NEGATIVE); CANNABINOID URINE SCREEN NEGATIVE (NEGATIVE); METHADONE URINE SCREEN NEGATIVE (NEGATIVE); OPIATES URINE SCREEN NEGATIVE (NEGATIVE); PHENCYCLIDINE URINE SCREEN NEGATIVE (NEGATIVE)
[2018-06-01 05:33] LABS: *BARBITURATES SCREEN URINE NEGATIVE (NEGATIVE)
[2018-06-01] MEDS ORDERED: INSULIN LISPRO 100 UNITS/ML SUBCUT SCH (09:45)
[2018-06-01] MEDS ORDERED: ZOSYN XX SCH (09:45)
[2018-06-01] MEDS ORDERED: BLOOD SUGAR DIAGNOSTIC STRIP TEST SCH (09:45)
[2018-06-01] MEDS ORDERED: DEXTROSE 50% WATER 50ML SYRINGE IV PRN (09:45)
[2018-06-01] MEDS ORDERED: POTASSIUM CHLORIDE INJ 40 MEQ in DEXT 5% WATER 250 ML IV ONE (10:30)
[2018-06-01 10:34] LABS: BG CARBOXYHEMOGLOBIN 1.1 % (0.5-1.5); BG DEOXYHEMOGLOBIN 0.7 % (0.0-5.0); BG FRACTION INSPIRED OXYGEN 40; BG HCO3 ACT 28.2 mmol/L (22.0-26.0); BG METHEMOGLOBIN 0.3 % (0.0-1.5); BG OXYGEN SATURATION 99.3 % (92.0-98.5); BG OXYHEMOGLOBIN 97.9 % (94.0-97.0); BG PCO2 40.5 mmHg (35.0-45.0); BG PO2 166.6 mmHg (75.0-100.0); BG SAMPLE SITE RIGHT RADIAL; BG TIDAL VOLUME(mL) 500 mL; BG TOTAL HEMOGLOBIN 16.4 g/dL (12.0-18.0); BG VENT MODE VENT - A/C; BG VENT RATE 14 set
[2018-06-01] MEDS ORDERED: VANCOMYCIN 1,250 MG in DEXT 5% WATER 250 ML IV SCH (10:45)
[2018-06-01] MEDS: LORAZEPAM 2MG/ML CPJ IV PRN ×2 (10:53→19:55)
[2018-06-01] MEDS: PROPOFOL 10MG/ML 100ML 100 ML IV PRN ×2 (11:00→21:21)
[2018-06-01] MEDS ORDERED: ENOXAPARIN 60MG/0.6ML SYR SUBCUT SCH (11:30)
[2018-06-01] MEDS: PIPERACILLIN/TAZ 2.25G PREMIX 50 ML IV SCH ×2 (11:54→20:20)
[2018-06-01] MEDS: BLOOD SUGAR DIAGNOSTIC STRIP TEST SCH ×2 (11:58→17:56)
[2018-06-01] MEDS: INSULIN LISPRO 100 UNITS/ML SUBCUT SCH ×2 (11:58→17:56)
[2018-06-01] MEDS: IPRATROPIUM/ALBUTEROL 0.5-3(2.5)MG/3ML NEB HHN SCH ×2 (12:10→16:38)
[2018-06-01] MEDS ORDERED: POTA20TA12 PO (13:14)
[2018-06-01] MEDS ORDERED: APIX2.5T PO (13:20)
[2018-06-01] MEDS ORDERED: BUME2TAB3 PO (13:20)
[2018-06-01] MEDS ORDERED: LISI2.5T47 PO (13:20)
[2018-06-01] MEDS ORDERED: magnesium protein PO (13:20)
[2018-06-01] MEDS: ENOXAPARIN 60MG/0.6ML SYR SUBCUT SCH (14:27)
[2018-06-01] MEDS: LEVETIRACETAM 500 MG in SODIUM CHLORIDE 0.9% 100 ML IV SCH ×2 (14:31→23:14)
[2018-06-01] MEDS ORDERED: SODIUM CHLORIDE 0.9% 10ML VIAL ONE (14:35)
[2018-06-01] MEDS: THIAMINE HCL 100 MG in SODIUM CHLORIDE 0.9% 49 ML IV SCH (17:06)
[2018-06-01] MEDS: LACTULOSE 20G/30ML UDC PO SCH (21:26)
[2018-06-01] MEDS: VANCOMYCIN 750 MG PREMIX 150 ML IV SCH (22:52)
[2018-06-02] VITALS (50 sets, daily range): BP systolic 94–173; BP diastolic 61–119
[2018-06-02] MEDS: IPRATROPIUM/ALBUTEROL 0.5-3(2.5)MG/3ML NEB HHN SCH ×6 (00:16→20:22)
[2018-06-02] MEDS: PIPERACILLIN/TAZ 2.25G PREMIX 50 ML IV SCH ×4 (00:36→17:11)
[2018-06-02] MEDS: BLOOD SUGAR DIAGNOSTIC STRIP TEST SCH ×4 (00:36→18:36)
[2018-06-02] MEDS: LORAZEPAM 2MG/ML CPJ IV PRN ×2 (02:39→20:55)
[2018-06-02] MEDS: PROPOFOL 10MG/ML 100ML 100 ML IV PRN ×2 (05:27→10:00)
[2018-06-02 05:57] LABS: HEMATOCRIT 46.4 % (42.0-52.0); HEMOGLOBIN 15.7 g/dL (14.0-18.0); MEAN CORPUSCULAR VOLUME 97.6 fL (80.0-94.0); RED BLOOD CELL COUNT 4.75 mill/uL (4.7-6.1)
[2018-06-02] MEDS: INSULIN LISPRO 100 UNITS/ML SUBCUT SCH ×4 (06:00→18:00)
[2018-06-02] MEDS: LACTULOSE 20G/30ML UDC PO SCH ×3 (06:22→22:25)
[2018-06-02] MEDS: ENOXAPARIN 60MG/0.6ML SYR SUBCUT SCH ×2 (06:23→17:12)
[2018-06-02 07:03] LABS: HEPATITIS B SURFACE ANTIGEN NEGATIVE
[2018-06-02 07:22] LABS: BG BASE EXCESS 3.3 mmol/L (-2.0-2.0); BG CARBOXYHEMOGLOBIN 0.8 % (0.5-1.5); BG DEOXYHEMOGLOBIN 1.5 % (0.0-5.0); BG HCO3 ACT 27.4 mmol/L (22.0-26.0); BG METHEMOGLOBIN 0.2 % (0.0-1.5); BG OXYGEN SATURATION 98.5 % (92.0-98.5); BG OXYHEMOGLOBIN 97.5 % (94.0-97.0); BG PH 7.454 (7.350-7.450); BG PO2 127.7 mmHg (75.0-100.0); BG SAMPLE SITE RIGHT BRACHIAL; BG TIDAL VOLUME(mL) 500 mL; BG TOTAL HEMOGLOBIN 15.7 g/dL (12.0-18.0); BG VENT MODE VENT - A/C; BG VENT RATE 14 set
[2018-06-02 07:44] LABS: CHLORIDE 102 mEq/L (98-107)
[2018-06-02 08:32] LABS: HEPATITIS A AB IGM Equiv (NEGATIVE)
[2018-06-02] MEDS: PANTOPRAZOLE SODIUM 40 MG/VIAL IV SCH (09:24)
[2018-06-02] MEDS ORDERED: POTASSIUM CHLORIDE INJ 40 MEQ in DEXT 5% WATER 250 ML IV NR ×2 (10:00→16:00)
[2018-06-02] MEDS: VANCOMYCIN 750 MG PREMIX 150 ML IV SCH ×2 (10:57→22:28)
[2018-06-02] MEDS: DEXT 5%/0.45% NACL 1000ML 1,000 ML IV SCH (13:10)
[2018-06-02 14:08] LABS: BG BASE EXCESS 2.6 mmol/L (-2.0-2.0); BG CARBOXYHEMOGLOBIN 1.9 % (0.5-1.5); BG DEOXYHEMOGLOBIN 0.6 % (0.0-5.0); BG FRACTION INSPIRED OXYGEN 40; BG HCO3 ACT 25.7 mmol/L (22.0-26.0); BG METHEMOGLOBIN 0.2 % (0.0-1.5); BG OXYGEN SATURATION 99.4 % (92.0-98.5); BG OXYHEMOGLOBIN 97.3 % (94.0-97.0); BG PCO2 35.6 mmHg (35.0-45.0); BG PH 7.477 (7.350-7.450); BG PO2 186.3 mmHg (75.0-100.0); BG PRESSURE SUPPORT 10; BG SAMPLE SITE RIGHT BRACHIAL; BG TOTAL HEMOGLOBIN 15.9 g/dL (12.0-18.0); BG VENT MODE VENT - CPAP
[2018-06-02] MEDS: LEVETIRACETAM 500 MG in SODIUM CHLORIDE 0.9% 100 ML IV SCH ×2 (14:18→22:26)
[2018-06-02] MEDS: THIAMINE HCL 100 MG in SODIUM CHLORIDE 0.9% 49 ML IV SCH (15:26)
[2018-06-02] MEDS ORDERED: METOPROLOL TARTRATE 25MG TABLET PO ONE (15:45)
[2018-06-02] MEDS ORDERED: METOPROLOL TARTRATE 5MG/5ML VIAL IV NR (16:15)
[2018-06-02 16:52] LABS: BG BASE EXCESS 1.6 mmol/L (-2.0-2.0); BG CARBOXYHEMOGLOBIN 1.3 % (0.5-1.5); BG CPAP (cmH2O) 0 cm(H2O); BG DEOXYHEMOGLOBIN 1.1 % (0.0-5.0); BG HCO3 ACT 24.9 mmol/L (22.0-26.0); BG METHEMOGLOBIN 0.3 % (0.0-1.5); BG OXYGEN SATURATION 98.9 % (92.0-98.5); BG OXYHEMOGLOBIN 97.3 % (94.0-97.0); BG PCO2 35.6 mmHg (35.0-45.0); BG PH 7.463 (7.350-7.450); BG PO2 136.9 mmHg (75.0-100.0); BG PRESSURE SUPPORT 0; BG SAMPLE SITE RIGHT RADIAL; BG TOTAL HEMOGLOBIN 16.3 g/dL (12.0-18.0); BG VENT MODE VENT - CPAP
[2018-06-02 18:16] LABS: BG BASE EXCESS 1.4 mmol/L (-2.0-2.0); BG DEOXYHEMOGLOBIN 0.7 % (0.0-5.0); BG HCO3 ACT 24.2 mmol/L (22.0-26.0); BG METHEMOGLOBIN 0.4 % (0.0-1.5); BG OXYGEN SATURATION 99.3 % (92.0-98.5); BG OXYHEMOGLOBIN 97.9 % (94.0-97.0); BG PCO2 33.6 mmHg (35.0-45.0); BG PH 7.476 (7.350-7.450); BG PO2 172.5 mmHg (75.0-100.0); BG SAMPLE SITE RIGHT RADIAL; BG TOTAL HEMOGLOBIN 16.3 g/dL (12.0-18.0); BG VENT MODE MASK - AEROSOL
[2018-06-03] VITALS (12 sets, daily range): BP systolic 109–146; BP diastolic 70–93
[2018-06-03] MEDS: CHLORDIAZEPOXIDE 25MG CAPSULE PO SCH ×3 (00:12→12:58)
[2018-06-03] MEDS: BLOOD SUGAR DIAGNOSTIC STRIP TEST SCH ×4 (00:20→19:30)
[2018-06-03] MEDS: PIPERACILLIN/TAZ 2.25G PREMIX 50 ML IV SCH ×4 (00:43→20:53)
[2018-06-03] MEDS: IPRATROPIUM/ALBUTEROL 0.5-3(2.5)MG/3ML NEB HHN SCH ×6 (01:28→20:51)
[2018-06-03] MEDS: LACTULOSE 20G/30ML UDC PO SCH (05:43)
[2018-06-03] MEDS: ENOXAPARIN 60MG/0.6ML SYR SUBCUT SCH (05:43)
[2018-06-03] MEDS: INSULIN LISPRO 100 UNITS/ML SUBCUT SCH ×4 (05:44→18:00)
[2018-06-03 05:48] LABS: HEMATOCRIT 42.5 % (42.0-52.0); HEMOGLOBIN 14.3 g/dL (14.0-18.0); MEAN CORPUSCULAR VOLUME 98.1 fL (80.0-94.0); PLATELET 77 x1000/uL (130-400); RED BLOOD CELL COUNT 4.33 mill/uL (4.7-6.1); RED CELL DISTRIBUTION WIDTH 15.1 % (11.6-14.6)
[2018-06-03 05:52] LABS: CHLORIDE 107 mEq/L (98-107)
[2018-06-03] MEDS: DEXT 5%/0.45% NACL 1000ML 1,000 ML IV SCH (08:45)
[2018-06-03 08:53] LABS: BG BASE EXCESS 4.2 mmol/L (-2.0-2.0); BG CARBOXYHEMOGLOBIN 0.7 % (0.5-1.5); BG DEOXYHEMOGLOBIN 1.4 % (0.0-5.0); BG FRACTION INSPIRED OXYGEN 32; BG HCO3 ACT 27.5 mmol/L (22.0-26.0); BG METHEMOGLOBIN 0.7 % (0.0-1.5); BG OXYGEN SATURATION 98.6 % (92.0-98.5); BG OXYHEMOGLOBIN 97.2 % (94.0-97.0); BG PCO2 36.6 mmHg (35.0-45.0); BG PH 7.493 (7.350-7.450); BG PO2 131.7 mmHg (75.0-100.0); BG SAMPLE SITE RIGHT RADIAL; BG TOTAL HEMOGLOBIN 14.4 g/dL (12.0-18.0); BG VENT MODE NASAL CANNULA
[2018-06-03] MEDS ORDERED: POTASSIUM CHLORIDE INJ 40 MEQ in DEXT 5% WATER 250 ML IV ONE (11:00)
[2018-06-03] MEDS: VANCOMYCIN 1 G PREMIX 200 ML IV SCH ×2 (12:55→21:26)
[2018-06-03] MEDS: PANTOPRAZOLE SODIUM 40 MG/VIAL IV SCH (12:55)
[2018-06-03] MEDS: LEVETIRACETAM 500 MG in SODIUM CHLORIDE 0.9% 100 ML IV SCH (12:57)
[2018-06-03] MEDS ORDERED: CHLORDIAZEPOXIDE 25MG CAPSULE PO PRN (13:15)
[2018-06-03] MEDS: LORAZEPAM 2MG/ML CPJ IV PRN ×2 (13:26→21:07)
[2018-06-03] MEDS: THIAMINE HCL 100 MG in SODIUM CHLORIDE 0.9% 49 ML IV SCH (15:31)
[2018-06-03] MEDS ORDERED: LORAZEPAM 2MG/ML CPJ IV NR (17:00)
[2018-06-03 17:43] LABS: BG CARBOXYHEMOGLOBIN 1.1 % (0.5-1.5); BG DEOXYHEMOGLOBIN 1.5 % (0.0-5.0); BG FRACTION INSPIRED OXYGEN 28; BG HCO3 ACT 19.9 mmol/L (22.0-26.0); BG METHEMOGLOBIN 0.1 % (0.0-1.5); BG OXYGEN SATURATION 98.5 % (92.0-98.5); BG OXYHEMOGLOBIN 97.3 % (94.0-97.0); BG PCO2 30.2 mmHg (35.0-45.0); BG PH 7.437 (7.350-7.450); BG SAMPLE SITE RIGHT RADIAL; BG TOTAL HEMOGLOBIN 14.8 g/dL (12.0-18.0); BG VENT MODE NASAL CANNULA
[2018-06-04] VITALS: BP 141/89
[2018-06-04] MEDS: PIPERACILLIN/TAZ 2.25G PREMIX 50 ML IV SCH ×4 (00:30→21:09)
[2018-06-04] MEDS: BLOOD SUGAR DIAGNOSTIC STRIP TEST SCH ×5 (00:30→23:30)
[2018-06-04] MEDS: IPRATROPIUM/ALBUTEROL 0.5-3(2.5)MG/3ML NEB HHN SCH ×6 (00:35→20:39)
[2018-06-04] MEDS: LEVETIRACETAM 500 MG in SODIUM CHLORIDE 0.9% 100 ML IV SCH ×3 (00:50→21:40)
[2018-06-04] MEDS: LORAZEPAM 2MG/ML CPJ IV PRN ×4 (03:50→22:38)
[2018-06-04] MEDS: DEXT 5%/0.45% NACL 1000ML 1,000 ML IV SCH (03:51)
[2018-06-04] MEDS: INSULIN LISPRO 100 UNITS/ML SUBCUT SCH ×5 (05:28→23:32)
[2018-06-04 06:00] VITALS: BP 138/82
[2018-06-04 08:00] VITALS: BP 116/77
[2018-06-04 08:06] LABS: HEMATOCRIT 39.1 % (42.0-52.0); HEMOGLOBIN 13.3 g/dL (14.0-18.0); MEAN CORPUSCULAR HEMOGLOBIN 33.1 pg (28.0-32.0); MEAN CORPUSCULAR VOLUME 97.6 fL (80.0-94.0); PLATELET 89 x1000/uL (130-400); RED BLOOD CELL COUNT 4.01 mill/uL (4.7-6.1); RED CELL DISTRIBUTION WIDTH 14.6 % (11.6-14.6)
[2018-06-04 08:20] LABS: CHLORIDE 111 mEq/L (98-107)
[2018-06-04 08:52] LABS: BG CARBOXYHEMOGLOBIN 1.1 % (0.5-1.5); BG DEOXYHEMOGLOBIN 3.8 % (0.0-5.0); BG FRACTION INSPIRED OXYGEN 21; BG HCO3 ACT 23.6 mmol/L (22.0-26.0); BG METHEMOGLOBIN 0.1 % (0.0-1.5); BG OXYGEN SATURATION 96.2 % (92.0-98.5); BG PCO2 31.7 mmHg (35.0-45.0); BG PH 7.489 (7.350-7.450); BG PO2 81.8 mmHg (75.0-100.0); BG SAMPLE SITE RIGHT RADIAL; BG TOTAL HEMOGLOBIN 13.9 g/dL (12.0-18.0); BG VENT MODE ROOM AIR
[2018-06-04] MEDS: VANCOMYCIN 1 G PREMIX 200 ML IV SCH ×2 (09:13→21:07)
[2018-06-04] MEDS: PANTOPRAZOLE SODIUM 40 MG/VIAL IV SCH (09:13)
[2018-06-04] MEDS ORDERED: POTASSIUM CHLORIDE INJ 40 MEQ in DEXT 5% WATER 250 ML IV NR (12:00)
[2018-06-04 12:13] VITALS: BP 131/78
[2018-06-04 15:44] VITALS: BP 130/82
[2018-06-04 20:00] VITALS: BP 140/78
[2018-06-04] MEDS ORDERED: RISPERIDONE 0.5MG TABLET PO SCH (21:00)
[2018-06-04] MEDS: THIAMINE HCL 100 MG in SODIUM CHLORIDE 0.9% 49 ML IV SCH (21:07)
[2018-06-04] MEDS: CHLORDIAZEPOXIDE 25MG CAPSULE PO SCH (21:08)
[2018-06-04] MEDS: RISPERIDONE 0.25MG TABLET PO SCH (21:08)
[2018-06-05] VITALS (7 sets, daily range): BP systolic 126–184; BP diastolic 69–102
[2018-06-05] MEDS: PIPERACILLIN/TAZ 2.25G PREMIX 50 ML IV SCH ×3 (00:08→12:04)
[2018-06-05] MEDS: DEXT 5%/0.45% NACL 1000ML 1,000 ML IV SCH ×2 (00:09→09:30)
[2018-06-05] MEDS: IPRATROPIUM/ALBUTEROL 0.5-3(2.5)MG/3ML NEB HHN SCH ×6 (00:52→21:00)
[2018-06-05] MEDS: CHLORDIAZEPOXIDE 25MG CAPSULE PO SCH ×3 (04:16→20:31)
[2018-06-05] MEDS: BLOOD SUGAR DIAGNOSTIC STRIP TEST SCH ×4 (05:13→23:36)
[2018-06-05] MEDS: INSULIN LISPRO 100 UNITS/ML SUBCUT SCH ×4 (06:00→23:36)
[2018-06-05 06:26] LABS: HEMATOCRIT 40.1 % (42.0-52.0); HEMOGLOBIN 13.6 g/dL (14.0-18.0); MEAN CORPUSCULAR HEMOGLOBIN 33.1 pg (28.0-32.0); MEAN CORPUSCULAR VOLUME 97.3 fL (80.0-94.0); PLATELET 82 x1000/uL (130-400); RED BLOOD CELL COUNT 4.12 mill/uL (4.7-6.1); RED CELL DISTRIBUTION WIDTH 14.7 % (11.6-14.6)
[2018-06-05] MEDS: LORAZEPAM 2MG/ML CPJ IV PRN ×2 (07:05→22:14)
[2018-06-05] MEDS: PANTOPRAZOLE SODIUM 40 MG/VIAL IV SCH (09:29)
[2018-06-05] MEDS: RISPERIDONE 0.25MG TABLET PO SCH ×2 (09:29→20:31)
[2018-06-05] MEDS: LEVETIRACETAM 500 MG in SODIUM CHLORIDE 0.9% 100 ML IV SCH ×2 (09:29→21:24)
[2018-06-05] MEDS ORDERED: HYDRALAZINE 20MG/ML VIAL IV PRN (11:30)
[2018-06-05] MEDS ORDERED: POTASSIUM CHLORIDE INJ 40 MEQ in DEXT 5% WATER 250 ML IV NR (13:00)
[2018-06-05] MEDS: DEXT 5%/0.45% NACL KCL 20MEQ/L 1,000 ML IV SCH (13:10)
[2018-06-05] MEDS ORDERED: LORAZEPAM 2MG/ML CPJ IV PRN (13:15)
[2018-06-05] MEDS: AMLODIPINE 5MG TABLET PO SCH (14:09)
[2018-06-05] MEDS: NITROGLYCERIN OINT 1GM/INCH UDPKT TD SCH ×2 (14:09→21:24)
[2018-06-05] MEDS ORDERED: CHLORDIAZEPOXIDE 25MG CAPSULE PO SCH (15:00)
[2018-06-05] MEDS: APIXABAN 2.5 MG TABLET PO SCH (17:09)
[2018-06-05] MEDS: THIAMINE HCL 100 MG in SODIUM CHLORIDE 0.9% 49 ML IV SCH (20:30)
[2018-06-06] VITALS: BP 180/102
[2018-06-06] MEDS: IPRATROPIUM/ALBUTEROL 0.5-3(2.5)MG/3ML NEB HHN SCH ×6 (01:42→21:02)
[2018-06-06 04:00] VITALS: BP 147/80
[2018-06-06] MEDS: LORAZEPAM 2MG/ML CPJ IV PRN (05:32)
[2018-06-06] MEDS: BLOOD SUGAR DIAGNOSTIC STRIP TEST SCH ×3 (05:32→18:00)
[2018-06-06] MEDS: NITROGLYCERIN OINT 1GM/INCH UDPKT TD SCH ×3 (05:32→21:18)
[2018-06-06] MEDS: INSULIN LISPRO 100 UNITS/ML SUBCUT SCH ×3 (05:39→18:00)
[2018-06-06 07:03] LABS: HEMATOCRIT 44.1 % (42.0-52.0); HEMOGLOBIN 14.7 g/dL (14.0-18.0); MEAN CORPUSCULAR HEMOGLOBIN 32.6 pg (28.0-32.0); MEAN CORPUSCULAR VOLUME 97.8 fL (80.0-94.0); RED BLOOD CELL COUNT 4.51 mill/uL (4.7-6.1)
[2018-06-06 07:23] LABS: CHLORIDE 115 mEq/L (98-107)
[2018-06-06 08:00] VITALS: BP 171/98
[2018-06-06] MEDS: DEXT 5%/0.45% NACL KCL 20MEQ/L 1,000 ML IV SCH ×2 (09:00→17:15)
[2018-06-06] MEDS: RISPERIDONE 0.25MG TABLET PO SCH (09:23)
[2018-06-06] MEDS: CHLORDIAZEPOXIDE 25MG CAPSULE PO SCH (09:23)
[2018-06-06] MEDS: APIXABAN 2.5 MG TABLET PO SCH ×3 (09:23→17:17)
[2018-06-06] MEDS: AMLODIPINE 5MG TABLET PO SCH (09:24)
[2018-06-06] MEDS: LEVETIRACETAM 500 MG in SODIUM CHLORIDE 0.9% 100 ML IV SCH ×2 (09:47→21:18)
[2018-06-06] MEDS: PANTOPRAZOLE SODIUM 40 MG/VIAL IV SCH (09:47)
[2018-06-06 12:00] VITALS: BP 106/71
[2018-06-06 16:00] VITALS: BP 107/63
[2018-06-06 20:00] VITALS: BP 116/69
[2018-06-06] MEDS: THIAMINE HCL 100 MG in SODIUM CHLORIDE 0.9% 49 ML IV SCH (20:26)
[2018-06-06] MEDS ORDERED: LORAZEPAM 2MG/ML CPJ IV PRN (23:53)
[2018-06-07] VITALS: BP 139/86
[2018-06-07] MEDS: IPRATROPIUM/ALBUTEROL 0.5-3(2.5)MG/3ML NEB HHN SCH ×6 (00:23→21:07)
[2018-06-07] MEDS: BLOOD SUGAR DIAGNOSTIC STRIP TEST SCH ×4 (00:53→18:00)
[2018-06-07 04:00] VITALS: BP 151/93
[2018-06-07] MEDS: DEXT 5%/0.45% NACL KCL 20MEQ/L 1,000 ML IV SCH (05:15)
[2018-06-07] MEDS: NITROGLYCERIN OINT 1GM/INCH UDPKT TD SCH ×3 (05:15→21:07)
[2018-06-07] MEDS: INSULIN LISPRO 100 UNITS/ML SUBCUT SCH ×4 (05:15→18:00)
[2018-06-07 08:00] VITALS: BP 136/84
[2018-06-07] MEDS: LEVETIRACETAM 500 MG in SODIUM CHLORIDE 0.9% 100 ML IV SCH ×2 (08:32→20:50)
[2018-06-07] MEDS: PANTOPRAZOLE SODIUM 40 MG/VIAL IV SCH (08:33)
[2018-06-07] MEDS: APIXABAN 2.5 MG TABLET PO SCH ×2 (08:34→18:03)
[2018-06-07] MEDS: AMLODIPINE 5MG TABLET PO SCH (08:40)
[2018-06-07 12:00] VITALS: BP 143/91
[2018-06-07 16:00] VITALS: BP 135/86
[2018-06-07] MEDS ORDERED: LORAZEPAM 2MG/ML CPJ IV PRN (17:53)
[2018-06-07] MEDS ORDERED: POLYVINYL ALCOHOL OPHTH DROPS 15ML BOTHEYE PRN (18:00)
[2018-06-07 20:22] VITALS: BP 99/57
[2018-06-07] MEDS ORDERED: PIPERACILLIN/TAZOBACTAM 3.375GM/50ML PREMIX IV STA (20:32)
[2018-06-07] MEDS: THIAMINE HCL 100 MG in SODIUM CHLORIDE 0.9% 49 ML IV SCH (20:41)
[2018-06-07] MEDS: PIPERACILLIN/TAZ 3.375G PREMIX 50 ML IV SCH (22:25)
[2018-06-08 00:07] VITALS: BP 143/91
[2018-06-08] MEDS: IPRATROPIUM/ALBUTEROL 0.5-3(2.5)MG/3ML NEB HHN SCH ×5 (00:51→21:49)
[2018-06-08] MEDS: INSULIN LISPRO 100 UNITS/ML SUBCUT SCH ×4 (01:43→18:00)
[2018-06-08] MEDS: DEXT 5%/0.45% NACL KCL 20MEQ/L 1,000 ML IV SCH (01:44)
[2018-06-08] MEDS: PIPERACILLIN/TAZ 3.375G PREMIX 50 ML IV SCH ×4 (04:05→21:14)
[2018-06-08 04:25] VITALS: BP 111/72
[2018-06-08] MEDS: BLOOD SUGAR DIAGNOSTIC STRIP TEST SCH ×4 (05:24→18:49)
[2018-06-08] MEDS: NITROGLYCERIN OINT 1GM/INCH UDPKT TD SCH ×3 (05:24→21:11)
[2018-06-08 07:30] LABS: HEMATOCRIT 40.2 % (42.0-52.0); HEMOGLOBIN 13.6 g/dL (14.0-18.0); RED BLOOD CELL COUNT 4.11 mill/uL (4.7-6.1); RED CELL DISTRIBUTION WIDTH 14.8 % (11.6-14.6)
[2018-06-08 08:00] VITALS: BP 130/79
[2018-06-08] MEDS: APIXABAN 2.5 MG TABLET PO SCH ×2 (09:03→18:54)
[2018-06-08] MEDS: LEVETIRACETAM 500 MG in SODIUM CHLORIDE 0.9% 100 ML IV SCH ×2 (09:03→21:10)
[2018-06-08] MEDS: PANTOPRAZOLE SODIUM 40 MG/VIAL IV SCH (09:03)
[2018-06-08] MEDS: AMLODIPINE 5MG TABLET PO SCH (09:03)
[2018-06-08 12:00] VITALS: BP 111/62
[2018-06-08] MEDS ORDERED: POTASSIUM CHLORIDE 20MEQ TABLET SR PO SCH (15:00)
[2018-06-08 16:00] VITALS: BP 100/56
[2018-06-08] MEDS: DEXTROSE 5% WATER 1,000 ML IV SCH (16:21)
[2018-06-08 20:00] VITALS: BP 104/62
[2018-06-08] MEDS: THIAMINE HCL 100 MG in SODIUM CHLORIDE 0.9% 49 ML IV SCH (20:23)
[2018-06-09] VITALS: BP 102/72
[2018-06-09] MEDS: IPRATROPIUM/ALBUTEROL 0.5-3(2.5)MG/3ML NEB HHN SCH ×6 (02:37→20:48)
[2018-06-09 04:00] VITALS: BP 119/72
[2018-06-09] MEDS: PIPERACILLIN/TAZ 3.375G PREMIX 50 ML IV SCH ×3 (04:20→18:40)
[2018-06-09] MEDS: DEXTROSE 5% WATER 1,000 ML IV SCH ×2 (04:20→18:41)
[2018-06-09] MEDS: NITROGLYCERIN OINT 1GM/INCH UDPKT TD SCH ×3 (05:18→21:20)
[2018-06-09] MEDS: BLOOD SUGAR DIAGNOSTIC STRIP TEST SCH ×4 (05:18→18:41)
[2018-06-09] MEDS: INSULIN LISPRO 100 UNITS/ML SUBCUT SCH ×4 (05:45→18:00)
[2018-06-09] MEDS: AMLODIPINE 5MG TABLET PO SCH (09:00)
[2018-06-09] MEDS: APIXABAN 2.5 MG TABLET PO SCH ×2 (09:25→18:41)
[2018-06-09] MEDS: LEVETIRACETAM 500 MG in SODIUM CHLORIDE 0.9% 100 ML IV SCH ×2 (09:26→22:05)
[2018-06-09] MEDS: PANTOPRAZOLE SODIUM 40 MG/VIAL IV SCH (09:26)
[2018-06-09 12:04] VITALS: BP 112/68
[2018-06-09 15:54] VITALS: BP 120/77
[2018-06-09 17:27] LABS: BASOPHILS % 1.1 % (0.0-2.0); EOSINOPHILS % 8.5 % (0.0-5.0); HEMATOCRIT. 36.9 % (42.0-52.0); HEMOGLOBIN. 12.2 g/dL (14.0-18.0); LYMPHOCYTES % 11.7 % (20.0-50.0); MEAN CORPUSCULAR HEMOGLOBIN 32.5 pg (28.0-32.0); MEAN CORPUSCULAR VOLUME 98.6 fL (80.0-94.0); MEAN PLATELET VOLUME 8.9 fl (7.4-10.4); MONOCYTES % 12.2 % (2.0-8.0); NEUTROPHILS % 66.5 % (40.0-76.0); PLATELET 95 x1000/uL (130-400); RED BLOOD CELL COUNT 3.74 mill/uL (4.7-6.1); RED CELL DISTRIBUTION WIDTH 14.7 % (11.6-14.6)
[2018-06-09] MEDS ORDERED: LORAZEPAM 2MG/ML CPJ IV PRN (17:53)
[2018-06-09 20:00] VITALS: BP 104/60
[2018-06-09] MEDS ORDERED: POTASSIUM CHLORIDE 20MEQ TABLET SR PO NR (20:30)
[2018-06-09] MEDS: THIAMINE HCL 100 MG in SODIUM CHLORIDE 0.9% 49 ML IV SCH (21:19)
[2018-06-10] VITALS: BP 116/70
[2018-06-10] MEDS: BLOOD SUGAR DIAGNOSTIC STRIP TEST SCH ×4 (00:11→18:09)
[2018-06-10] MEDS: PIPERACILLIN/TAZ 3.375G PREMIX 50 ML IV SCH ×4 (00:18→18:21)
[2018-06-10] MEDS: IPRATROPIUM/ALBUTEROL 0.5-3(2.5)MG/3ML NEB HHN SCH ×6 (00:40→21:19)
[2018-06-10 04:00] VITALS: BP 111/85
[2018-06-10] MEDS: INSULIN LISPRO 100 UNITS/ML SUBCUT SCH ×4 (06:00→18:00)
[2018-06-10] MEDS: NITROGLYCERIN OINT 1GM/INCH UDPKT TD SCH ×3 (06:33→21:43)
[2018-06-10 07:16] LABS: HEMATOCRIT 39.3 % (42.0-52.0); HEMOGLOBIN 13.1 g/dL (14.0-18.0); MEAN CORPUSCULAR HEMOGLOBIN 32.9 pg (28.0-32.0); MEAN CORPUSCULAR VOLUME 98.6 fL (80.0-94.0); PLATELET 62 x1000/uL (130-400); RED BLOOD CELL COUNT 3.98 mill/uL (4.7-6.1); RED CELL DISTRIBUTION WIDTH 14.9 % (11.6-14.6)
[2018-06-10 08:00] VITALS: BP 100/60
[2018-06-10] MEDS: AMLODIPINE 5MG TABLET PO SCH (08:30)
[2018-06-10] MEDS: APIXABAN 2.5 MG TABLET PO SCH ×2 (08:31→18:21)
[2018-06-10] MEDS: LEVETIRACETAM 500 MG in SODIUM CHLORIDE 0.9% 100 ML IV SCH ×2 (08:31→21:42)
[2018-06-10] MEDS: PANTOPRAZOLE SODIUM 40 MG/VIAL IV SCH (08:31)
[2018-06-10 08:55] LABS: BG BASE EXCESS -1.3 mmol/L (-2.0-2.0); BG CARBOXYHEMOGLOBIN 0.7 % (0.5-1.5); BG DEOXYHEMOGLOBIN 4.1 % (0.0-5.0); BG FRACTION INSPIRED OXYGEN 21; BG METHEMOGLOBIN 0.2 % (0.0-1.5); BG OXYGEN SATURATION 95.9 % (92.0-98.5); BG PCO2 32.9 mmHg (35.0-45.0); BG PH 7.444 (7.350-7.450); BG PO2 81.2 mmHg (75.0-100.0); BG SAMPLE SITE RIGHT RADIAL; BG TOTAL HEMOGLOBIN 13.5 g/dL (12.0-18.0); BG VENT MODE ROOM AIR
[2018-06-10 11:53] VITALS: BP 132/85
[2018-06-10] MEDS ORDERED: POTASSIUM CHLORIDE 20MEQ TABLET SR PO NR (14:00)
[2018-06-10 15:58] VITALS: BP 122/83
[2018-06-10 20:00] VITALS: BP 147/89
[2018-06-10] MEDS: THIAMINE HCL 100 MG in SODIUM CHLORIDE 0.9% 49 ML IV SCH (21:02)
[2018-06-11] VITALS: BP 115/69
[2018-06-11] MEDS: PIPERACILLIN/TAZ 3.375G PREMIX 50 ML IV SCH ×3 (00:27→12:25)
[2018-06-11] MEDS: BLOOD SUGAR DIAGNOSTIC STRIP TEST SCH ×5 (00:28→23:27)
[2018-06-11] MEDS: IPRATROPIUM/ALBUTEROL 0.5-3(2.5)MG/3ML NEB HHN SCH ×6 (01:19→20:19)
[2018-06-11 04:00] VITALS: BP 122/75
[2018-06-11] MEDS: INSULIN LISPRO 100 UNITS/ML SUBCUT SCH ×5 (06:00→23:27)
[2018-06-11] MEDS: NITROGLYCERIN OINT 1GM/INCH UDPKT TD SCH ×3 (06:54→21:33)
[2018-06-11 08:00] VITALS: BP 123/74
[2018-06-11] MEDS: APIXABAN 2.5 MG TABLET PO SCH ×2 (09:00→09:02)
[2018-06-11] MEDS: PANTOPRAZOLE SODIUM 40 MG/VIAL IV SCH (09:02)
[2018-06-11] MEDS: AMLODIPINE 5MG TABLET PO SCH (09:02)
[2018-06-11] MEDS: LEVETIRACETAM 500 MG in SODIUM CHLORIDE 0.9% 100 ML IV SCH ×2 (10:05→21:32)
[2018-06-11 12:00] VITALS: BP 105/72
[2018-06-11 16:00] VITALS: BP 128/86
[2018-06-11] MEDS ORDERED: LORAZEPAM 2MG/ML CPJ IV PRN (17:53)
[2018-06-11 20:00] VITALS: BP 119/77
[2018-06-11] MEDS: THIAMINE HCL 100 MG in SODIUM CHLORIDE 0.9% 49 ML IV SCH (21:33)
[2018-06-11] MEDS: METRONIDAZOLE 500MG TABLET PO SCH (21:33)
[2018-06-12] VITALS: BP 110/66
[2018-06-12] MEDS: IPRATROPIUM/ALBUTEROL 0.5-3(2.5)MG/3ML NEB HHN SCH ×4 (00:35→11:21)
[2018-06-12 04:00] VITALS: BP 149/78
[2018-06-12] MEDS: NITROGLYCERIN OINT 1GM/INCH UDPKT TD SCH (05:15)
[2018-06-12] MEDS: BLOOD SUGAR DIAGNOSTIC STRIP TEST SCH ×2 (05:17→11:59)
[2018-06-12] MEDS: INSULIN LISPRO 100 UNITS/ML SUBCUT SCH ×2 (05:17→12:00)
[2018-06-12 06:42] LABS: BASOPHILS % 0.8 % (0.0-2.0); HEMATOCRIT. 36.6 % (42.0-52.0); HEMOGLOBIN. 12.5 g/dL (14.0-18.0); LYMPHOCYTES % 19.5 % (20.0-50.0); MEAN CORPUSCULAR VOLUME 96.5 fL (80.0-94.0); MEAN PLATELET VOLUME 8.9 fl (7.4-10.4); MONOCYTES % 10.6 % (2.0-8.0); NEUTROPHILS % 64.1 % (40.0-76.0); PLATELET 120 x1000/uL (130-400); RED CELL DISTRIBUTION WIDTH 14.2 % (11.6-14.6)
[2018-06-12 08:00] VITALS: BP 125/71
[2018-06-12] MEDS: LEVETIRACETAM 500 MG in SODIUM CHLORIDE 0.9% 100 ML IV SCH (09:20)
[2018-06-12] MEDS: METRONIDAZOLE 500MG TABLET PO SCH (09:21)
[2018-06-12] MEDS: PANTOPRAZOLE SODIUM 40 MG/VIAL IV SCH (09:21)
[2018-06-12] MEDS: AMLODIPINE 5MG TABLET PO SCH (09:21)
[2018-06-12] MEDS ORDERED: LEVOFLOXACIN 250MG TABLET PO SCH (11:00)
[2018-06-12 12:00] VITALS: BP 121/81
[2018-06-12 16:00] VITALS: BP_SYST 112
[2018-06-12 16:04] VITALS: BP 112/56
== END 2018-06-12 17:10 | disposition home health service (06) | DRG 208 ==
LOC: ER 03:11 → CVICU 05:23 → EDBEDREQTM 05:26 → EDBEDREQSVC 05:26 → EDBEDREQ 05:26 → ENRESERV 08:05 → 6WST 06-03 18:29 → 5WST 06-11 04:50
PROVIDERS: ADMIT Internal Medicine; ATTEND Internal Medicine
PROC: 5A1945Z Respiratory Ventilation, 24-96 Consecutive Hours (ICD-10-PCS; principal; 2018-06-01)
PROC: 0BH17EZ Insertion of Endotracheal Airway into Trachea, Via Natural or Artificial Opening (ICD-10-PCS; 2018-06-01)
DX: J96.00 Acute respiratory failure, unspecified whether with hypoxia or hypercapnia (principal); I50.33 Acute on chronic diastolic (congestive) heart failure; E87.2 Acidosis; E72.20 Disorder of urea cycle metabolism, unspecified; F10.231 Alcohol dependence with withdrawal delirium; I82.502 Chronic embolism and thrombosis of unspecified deep veins of left lower extremity; G40.409 Other generalized epilepsy and epileptic syndromes, not intractable, without status epilepticus; I11.0 Hypertensive heart disease with heart failure; D69.59 Other secondary thrombocytopenia; R73.9 Hyperglycemia, unspecified; I48.0 Paroxysmal atrial fibrillation; R74.0 Nonspecific elevation of levels of transaminase and lactic acid dehydrogenase [LDH]; T50.905A Adverse effect of unspecified drugs, medicaments and biological substances, initial encounter; Z95.2 Presence of prosthetic heart valve; Y92.89 Other specified places as the place of occurrence of the external cause; Z78.1 Physical restraint status
CPT/HCPCS: 36415; 36600; 70551; 71045; 76700; 78580; 80048; 80076; 80202; 80305; 80307; 80329; 82140; 82375; 82550; 82805; 82962; 83036; 83605; 83735; 84443; 84478; 84484; 85027; 85049; 86705; 86709; 86803; 86850; 86900; 87070; 87340; 92610; 93005; 93306; 93970; 94002; 94003; 94640; 96365; 96375; 97116; 97162; 97530; 99291; C9113; J0360; J0696; J1650; J1815; J1953; J2060; J2405; J2543; J2704; J3370; J3411; J3480; J3490; J7050; J7060; J7070; J7620

== ENCOUNTER 2019-07-24 05:50 | Emergency (ER) | payer MEDICARE, OTHER ==
[~2019-07-24] VITALS: Ht 175.3 cm; Wt 73.0 kg
[~2019-07-24 05:50] MED LIST changes: +ALLO100T MT; +APIX2.5T PO; +ATOR40TA70 MT; +BRIN8DRO EACHEYE; +BUME2TAB8 PO; +DOCU100T MT; +GABA-531 MT; +LACT10SO30 PO; +LISI2.5T47 PO; +METF-414 MT; +METO-385 MT; -OMEP20CA10 PO; +OMEP20CA14 PO; +PANT40TA4 MT; +POTA20TA12 PO; +TIMO5DRO32 EACHEYE; +magnesium protein PO
[2019-07-24] MEDS ORDERED: SODIUM CHLORIDE 0.9% 1,000 ML IV ONE (06:05)
[2019-07-24] MEDS ORDERED: ONDANSETRON HCL 4MG/2ML INJ IV STA (06:05)
[2019-07-24] MEDS ORDERED: LEVETIRACETAM 1000MG/100ML 100 ML IV ONE (06:15)
[2019-07-24 06:30] LABS: BASOPHILS % 0.7 % (0.0-2.0); EOSINOPHILS % 0.1 % (0.0-5.0); HEMATOCRIT. 40.2 % (42.0-52.0); HEMOGLOBIN. 13.7 g/dL (14.0-18.0); LYMPHOCYTES % 13.1 % (20.0-50.0); MEAN CORPUSCULAR HEMOGLOBIN 31.8 pg (28.0-32.0); MEAN CORPUSCULAR VOLUME 93.1 fL (80.0-94.0); MEAN PLATELET VOLUME 7.8 fl (7.4-10.4); MONOCYTES % 12.4 % (2.0-8.0); NEUTROPHILS % 73.7 % (40.0-76.0); PLATELET 139 x1000/uL (130-400); RED BLOOD CELL COUNT 4.32 mill/uL (4.7-6.1); RED CELL DISTRIBUTION WIDTH 18.1 % (11.6-14.6)
[2019-07-24 06:37] LABS: CHLORIDE 101 mEq/L (98-107)
[2019-07-24 06:42] LABS: ETHANOL BLOOD 35 mg/dL
[2019-07-24 06:45] LABS: CREATINE KINASE 183 IU/L (39-308)
[2019-07-24 07:14] LABS: CARBAMAZEPINE < 0.5 ug/mL (4-12); PHENOBARBITAL < 2.1 ug/mL (15.0-40.0); VALPROIC ACID < 3.0 ug/mL (50-100)
[2019-07-24 07:23] LABS: *AMPHETAMINES SCREEN URINE NEGATIVE (NEGATIVE)
[2019-07-24 07:24] LABS: *BARBITURATES SCREEN URINE NEGATIVE (NEGATIVE); *BENZODIAZEPINES SCREEN URINE NEGATIVE (NEGATIVE); *COCAINE SCREEN URINE NEGATIVE (NEGATIVE); METHADONE URINE SCREEN NEGATIVE (NEGATIVE); OPIATES URINE SCREEN NEGATIVE (NEGATIVE); PHENCYCLIDINE URINE SCREEN NEGATIVE (NEGATIVE)
[2019-07-24 07:25] LABS: CANNABINOID URINE SCREEN NEGATIVE (NEGATIVE)
[2019-07-24 07:29] LABS: CLARITY URINE CLEAR (CLEAR); COLOR URINE YELLOW (YELLOW); KETONES URINE NEGATIVE (NEGATIVE); LEUKOCYTE ESTERASE URINE NEGATIVE (NEGATIVE); NITRITE URINE NEGATIVE (NEGATIVE); OCCULT BLOOD URINE NEGATIVE (NEGATIVE); PROTEIN URINE NEGATIVE (NEGATIVE); SPECIFIC GRAVITY URINE 1.006 (1.005-1.030); UROBILINOGEN URINE 0.2 E.U./dL (0.2-1.0)
[2019-07-24 10:35] VITALS: BP 152/90
== END 2019-07-24 12:32 | disposition home or self-care (01) ==
LOC: ER 05:50
DX: G40.909 Epilepsy, unspecified, not intractable, without status epilepticus (principal); F10.10 Alcohol abuse, uncomplicated; I10 Essential (primary) hypertension; E78.00 Pure hypercholesterolemia, unspecified; Y90.1 Blood alcohol level of 20-39 mg/100 ml
CPT/HCPCS: 36415; 80053; 80156; 80165; 80184; 80185; 80305; 80320; 81003; 82550; 84443; 85025; 93005; 96365; 96375; 99284; J1953; J2405; J7030; G0480

== ENCOUNTER 2019-08-31 03:19 | Inpatient (IN) | payer OTHER ==
[~2019-08-31] VITALS: Ht 172.7 cm; Wt 76.9 kg
[2019-08-31] VITALS (8 sets, daily range): BP systolic 111–164; BP diastolic 21–107
[2019-08-31] MEDS ORDERED: LEVETIRACETAM 500MG PREMIX 100 ML IV ONE (03:45)
[2019-08-31 04:09] LABS: CLARITY URINE CLEAR (CLEAR); COLOR URINE YELLOW (YELLOW); KETONES URINE NEGATIVE (NEGATIVE); LEUKOCYTE ESTERASE URINE NEGATIVE (NEGATIVE); NITRITE URINE NEGATIVE (NEGATIVE); OCCULT BLOOD URINE TRACE (NEGATIVE); PROTEIN URINE NEGATIVE (NEGATIVE); SPECIFIC GRAVITY URINE 1.007 (1.005-1.030); UROBILINOGEN URINE 0.2 E.U./dL (0.2-1.0)
[2019-08-31 04:10] LABS: CHLORIDE 104 mEq/L (98-107)
[2019-08-31 04:12] LABS: HEMATOCRIT. 42.1 % (42.0-52.0); HEMOGLOBIN. 14.8 g/dL (14.0-18.0); MEAN CORPUSCULAR HEMOGLOBIN 32.6 pg (28.0-32.0); MEAN CORPUSCULAR VOLUME 92.6 fL (80.0-94.0); MEAN PLATELET VOLUME 8.2 fl (7.4-10.4); RED BLOOD CELL COUNT 4.55 mill/uL (4.7-6.1); RED CELL DISTRIBUTION WIDTH 16.7 % (11.6-14.6)
[2019-08-31 04:14] LABS: ETHANOL BLOOD 27 mg/dL
[2019-08-31] MEDS ORDERED: LORAZEPAM 2MG/ML CPJ ONE (04:25)
[2019-08-31] MEDS ORDERED: LORAZEPAM 2MG/ML CPJ IV ONE ×3 (04:30→04:45)
[2019-08-31] MEDS ORDERED: CHLORDIAZEPOXIDE 25MG CAPSULE PO ONE (04:30)
[2019-08-31] MEDS ORDERED: FOLIC ACID 1 MG, THIAMINE HCL 100 MG, MVI, ADULT NO.1 10 ML in DEXTROSE 5% WATER 1,000 ML IV ONE ×8 (04:30→13:00)
[2019-08-31 04:43] LABS: *AMPHETAMINES SCREEN URINE NEGATIVE (NEGATIVE); *BARBITURATES SCREEN URINE NEGATIVE (NEGATIVE); *BENZODIAZEPINES SCREEN URINE NEGATIVE (NEGATIVE); *COCAINE SCREEN URINE NEGATIVE (NEGATIVE); CANNABINOID URINE SCREEN NEGATIVE (NEGATIVE); METHADONE URINE SCREEN NEGATIVE (NEGATIVE); OPIATES URINE SCREEN NEGATIVE (NEGATIVE); PHENCYCLIDINE URINE SCREEN NEGATIVE (NEGATIVE)
[2019-08-31] MEDS ORDERED: PHENOBARBITAL SODIUM 130MG/ML 1ML IV SCH (05:00)
[2019-08-31] MEDS ORDERED: PHENOBARBITAL SODIUM 65MG/ML 1ML IV SCH (06:00)
[2019-08-31 06:15] LABS: PLATELET ESTIMATE NORMAL
[2019-08-31 06:16] LABS: PLATELET 168 x1000/uL (130-400)
[2019-08-31] MEDS ORDERED: ONDANSETRON HCL 4MG/2ML INJ IV PRN (11:30)
[2019-08-31] MEDS ORDERED: ACETAMINOPHEN 325MG TABLET PO PRN (11:30)
[2019-08-31] MEDS ORDERED: LORAZEPAM 2MG/ML CPJ IV PRN (11:30)
[2019-08-31] MEDS ORDERED: AMLODIPINE 5MG TABLET PO NR (14:15)
[2019-08-31] MEDS: CHLORDIAZEPOXIDE 25MG CAPSULE PO SCH ×2 (15:26→20:52)
[2019-08-31] MEDS ORDERED: METOPROLOL TARTRATE 50MG TABLET PO NR (15:45)
[2019-08-31] MEDS ORDERED: VIT E PO (17:02)
[2019-08-31] MEDS ORDERED: AMLO5TAB88 MT (17:02)
[2019-08-31] MEDS ORDERED: VIT D PO (17:02)
[2019-08-31] MEDS ORDERED: FISH1CAP63 PO (17:02)
[2019-08-31] MEDS ORDERED: VIT B1 PO (17:02)
[2019-08-31] MEDS ORDERED: BUME2TAB34 MT (17:02)
[2019-08-31] MEDS ORDERED: CALC-1042 PO (17:02)
[2019-08-31] MEDS ORDERED: DONE5TAB33 MT (17:02)
[2019-08-31] MEDS ORDERED: KEPP500 MT (17:02)
[2019-08-31] MEDS: LEVETIRACETAM 500MG PREMIX 100 ML IV SCH (20:51)
[2019-08-31] MEDS: AMLODIPINE 5MG TABLET PO SCH (20:51)
[2019-08-31] MEDS: METOPROLOL TARTRATE 50MG TABLET PO SCH (20:52)
[2019-09-01] VITALS (12 sets, daily range): BP systolic 97–126; BP diastolic 54–91
[2019-09-01] MEDS: CHLORDIAZEPOXIDE 25MG CAPSULE PO SCH ×2 (05:22→12:58)
[2019-09-01 06:19] LABS: CHLORIDE 101 mEq/L (98-107)
[2019-09-01 06:29] LABS: HEMATOCRIT. 42.7 % (42.0-52.0); HEMOGLOBIN. 14.8 g/dL (14.0-18.0); MEAN CORPUSCULAR HEMOGLOBIN 31.6 pg (28.0-32.0); MEAN CORPUSCULAR VOLUME 91.3 fL (80.0-94.0); RED BLOOD CELL COUNT 4.68 mill/uL (4.7-6.1); RED CELL DISTRIBUTION WIDTH 16.6 % (11.6-14.6)
[2019-09-01] MEDS: AMLODIPINE 5MG TABLET PO SCH ×2 (09:00→20:34)
[2019-09-01] MEDS: METOPROLOL TARTRATE 50MG TABLET PO SCH ×2 (09:00→21:00)
[2019-09-01] MEDS: LEVETIRACETAM 500MG PREMIX 100 ML IV SCH (10:00)
[2019-09-01] MEDS ORDERED: POTASSIUM CHLORIDE 20MEQ/PACKET PO NR (11:30)
[2019-09-01 11:34] LABS: PLATELET ESTIMATE NORMAL
[2019-09-01] MEDS ORDERED: HYDRALAZINE 20MG/ML VIAL IV PRN (13:15)
[2019-09-01] MEDS ORDERED: DIPHENHYDRAMINE 50MG/ML VIAL IV PRN (13:15)
[2019-09-01] MEDS ORDERED: HYDROCODONE/ACETAMINOPHEN 5/325MG TABLET PO PRN (13:15)
[2019-09-01] MEDS ORDERED: DEXTROSE 50% WATER 50ML SYRINGE IV PRN (13:15)
[2019-09-01] MEDS ORDERED: ENOXAPARIN 30MG/0.3ML SYR SUBCUT SCH (14:00)
[2019-09-01] MEDS: FAMOTIDINE 20MG/2ML VIAL IV SCH (14:23)
[2019-09-01] MEDS: DEXT 5%/0.45% NACL 1000ML 1,000 ML IV SCH (14:24)
[2019-09-01 14:26] LABS: BG BASE EXCESS -0.6 mmol/L (-2.0-2.0); BG CARBOXYHEMOGLOBIN 1.8 % (0.5-1.5); BG DEOXYHEMOGLOBIN 3.7 % (0.0-5.0); BG FRACTION INSPIRED OXYGEN 21; BG HCO3 ACT 22.2 mmol/L (22.0-26.0); BG METHEMOGLOBIN 0.3 % (0.0-1.5); BG OXYGEN SATURATION 96.2 % (92.0-98.5); BG OXYHEMOGLOBIN 94.2 % (94.0-97.0); BG PCO2 31.6 mmHg (35.0-45.0); BG PH 7.465 (7.350-7.450); BG PO2 76.1 mmHg (75.0-100.0); BG SAMPLE SITE LEFT RADIAL; BG TOTAL HEMOGLOBIN 14.8 g/dL (12.0-18.0); BG VENT MODE ROOM AIR
[2019-09-01] MEDS ORDERED: FOLIC ACID 1 MG, THIAMINE HCL 100 MG, MVI, ADULT NO.1 10 ML in DEXT 5%/0.45% NACL 1000M... IV SCH ×4 (16:00)
[2019-09-01 16:33] LABS: INR 1.1; PROTHROMBIN TIME 11.8 sec (9.6-11.0)
[2019-09-01] MEDS: INSULIN LISPRO 100 UNITS/ML SUBCUT SCH ×2 (16:39→21:00)
[2019-09-01] MEDS: BLOOD SUGAR DIAGNOSTIC STRIP TEST SCH ×2 (16:39→21:00)
[2019-09-01] MEDS: APIXABAN 5 MG TABLET PO SCH (17:37)
[2019-09-01] MEDS: PIPERACILLIN/TAZOBACTAM 3.375 G in DEXT 5% WATER 100 ML IV SCH (17:38)
[2019-09-02] VITALS (9 sets, daily range): BP systolic 92–119; BP diastolic 55–67
[2019-09-02] MEDS: LEVETIRACETAM 500MG PREMIX 100 ML IV SCH ×2 (01:49→08:37)
[2019-09-02] MEDS: PIPERACILLIN/TAZOBACTAM 3.375 G in DEXT 5% WATER 100 ML IV SCH ×4 (03:00→15:00)
[2019-09-02] MEDS: DEXT 5%/0.45% NACL 1000ML 1,000 ML IV SCH (05:16)
[2019-09-02] MEDS: BLOOD SUGAR DIAGNOSTIC STRIP TEST SCH ×2 (05:51→11:57)
[2019-09-02 06:12] LABS: BASOPHILS % 0.6 % (0.0-2.0); EOSINOPHILS % 0.5 % (0.0-5.0); HEMATOCRIT. 39.9 % (42.0-52.0); HEMOGLOBIN. 13.7 g/dL (14.0-18.0); LYMPHOCYTES % 16.3 % (20.0-50.0); MEAN CORPUSCULAR HEMOGLOBIN 31.5 pg (28.0-32.0); MEAN CORPUSCULAR VOLUME 91.4 fL (80.0-94.0); MONOCYTES % 12.9 % (2.0-8.0); NEUTROPHILS % 69.7 % (40.0-76.0); RED BLOOD CELL COUNT 4.36 mill/uL (4.7-6.1); RED CELL DISTRIBUTION WIDTH 16.9 % (11.6-14.6)
[2019-09-02 06:15] LABS: CHLORIDE 103 mEq/L (98-107)
[2019-09-02] MEDS: INSULIN LISPRO 100 UNITS/ML SUBCUT SCH ×2 (07:20→11:57)
[2019-09-02] MEDS: METOPROLOL TARTRATE 50MG TABLET PO SCH (08:33)
[2019-09-02] MEDS: APIXABAN 5 MG TABLET PO SCH (08:34)
[2019-09-02] MEDS: AMLODIPINE 5MG TABLET PO SCH (08:34)
[2019-09-02] MEDS: FAMOTIDINE 20MG/2ML VIAL IV SCH (08:34)
[2019-09-02 11:21] LABS: PLATELET 96 x1000/uL (130-400)
[2019-09-02] MEDS ORDERED: APIX2.5T MT (13:39)
[2019-09-02] MEDS ORDERED: PROT40 MT (13:39)
[2019-09-02] MEDS ORDERED: KEPP500 MT (13:39)
[2019-09-02] MEDS ORDERED: LEVO500T2 MT (13:44)
[2019-09-02] MEDS ORDERED: POTASSIUM CHLORIDE 20MEQ TABLET SR PO NR (13:45)
[2019-09-02 13:56] LABS: PLATELET ESTIMATE NORMAL
== END 2019-09-02 15:34 | disposition home or self-care (01) | DRG 101 ==
LOC: ER 03:19 → MICUSO 04:50 → 3WST 11:17
PROVIDERS: ADMIT Internal Medicine; ATTEND Internal Medicine
DX: G40.909 Epilepsy, unspecified, not intractable, without status epilepticus (principal); G93.40 Encephalopathy, unspecified; F10.129 Alcohol abuse with intoxication, unspecified; E87.6 Hypokalemia; I10 Essential (primary) hypertension; E78.00 Pure hypercholesterolemia, unspecified; D72.825 Bandemia; E78.5 Hyperlipidemia, unspecified; Z86.718 Personal history of other venous thrombosis and embolism; Z95.2 Presence of prosthetic heart valve; Z79.01 Long term (current) use of anticoagulants; Z79.84 Long term (current) use of oral hypoglycemic drugs; Z79.899 Other long term (current) drug therapy; Z71.41 Alcohol abuse counseling and surveillance of alcoholic
CPT/HCPCS: 36415; 36600; 71045; 80048; 80053; 80305; 80320; 81003; 82140; 82375; 82542; 82805; 82962; 85025; 93005; 93970; 96365; 97162; 99285; J1650; J1953; J2060; J2543; J2560; J3411; J3490; J7060; J7070; G0480

== ENCOUNTER 2019-10-04 10:53 | Emergency (ER) | payer OTHER ==
[~2019-10-04] VITALS: Ht 172.7 cm; Wt 69.0 kg
[~2019-10-04 10:53] MED LIST changes: -ALLO100T MT; -AMLO2.5T45 PO; +AMLO5TAB88 MT; +APIX2.5T MT; -ATOR20TA65 PO; -BRIN8DRO EACHEYE; +BUME2TAB34 MT; -BUME2TAB8 PO; +CALC-1042 PO; -CARV3.1242 PO; -DOCU100T MT; +DONE5TAB33 MT; +FISH1CAP63 PO; -FURO40TA5 PO; -GABA-531 MT; +KEPP500 MT; -LACT10SO30 PO; +LEVO500T2 MT; -LISI2.5T47 PO; -METF-414 MT; -METO-385 MT; -OMEP20CA14 PO; -POTA20TA12 PO; -POTA20TA82 PO; +PROT40 MT; -RIVA20TA PO; -TEMA15CA5 PO; -TIMO5DRO32 EACHEYE; +VIT B1 PO; +VIT D PO; +VIT E PO; -magnesium protein PO
[2019-10-04] MEDS ORDERED: LEVETIRACETAM 500MG PREMIX 100 ML IV ONE (12:00)
[2019-10-04 12:19] LABS: HEMATOCRIT. 40.3 % (42.0-52.0); MEAN CORPUSCULAR HEMOGLOBIN 31.9 pg (28.0-32.0); MEAN CORPUSCULAR VOLUME 91.7 fL (80.0-94.0); RED CELL DISTRIBUTION WIDTH 17.1 % (11.6-14.6)
[2019-10-04 12:32] LABS: INR 1.1; PROTHROMBIN TIME 11.9 sec (9.6-11.0)
[2019-10-04 12:33] LABS: CHLORIDE 90 mEq/L (98-107)
[2019-10-04 12:40] LABS: ETHANOL BLOOD < 10 mg/dL
[2019-10-04] MEDS ORDERED: POTASSIUM CHLORIDE INJ 40 MEQ in DEXT 5% WATER 250 ML IV NR (15:00)
[2019-10-04] MEDS ORDERED: POTASSIUM CHLORIDE 20MEQ TABLET SR PO NR (15:00)
[2019-10-04 16:03] LABS: CLARITY URINE CLEAR (CLEAR); COLOR URINE YELLOW (YELLOW); KETONES URINE NEGATIVE (NEGATIVE); LEUKOCYTE ESTERASE URINE NEGATIVE (NEGATIVE); NITRITE URINE NEGATIVE (NEGATIVE); OCCULT BLOOD URINE TRACE (NEGATIVE); PROTEIN URINE NEGATIVE (NEGATIVE); SPECIFIC GRAVITY URINE 1.008 (1.005-1.030)
[2019-10-04 16:29] LABS: *AMPHETAMINES SCREEN URINE NEGATIVE (NEGATIVE); *BARBITURATES SCREEN URINE NEGATIVE (NEGATIVE)
[2019-10-04 16:30] LABS: *BENZODIAZEPINES SCREEN URINE PRESUMTIVE POSITIVE (NEGATIVE); *COCAINE SCREEN URINE NEGATIVE (NEGATIVE); CANNABINOID URINE SCREEN NEGATIVE (NEGATIVE); METHADONE URINE SCREEN NEGATIVE (NEGATIVE); OPIATES URINE SCREEN NEGATIVE (NEGATIVE); PHENCYCLIDINE URINE SCREEN NEGATIVE (NEGATIVE)
[2019-10-04 18:32] VITALS: BP 103/67
== END 2019-10-04 18:32 | disposition short-term general hospital (02) ==
LOC: ER 11:01 → CANBEDREQ 23:44
DX: G40.909 Epilepsy, unspecified, not intractable, without status epilepticus (principal); I11.9 Hypertensive heart disease without heart failure; E78.00 Pure hypercholesterolemia, unspecified; Z91.14 Patient's other noncompliance with medication regimen
CPT/HCPCS: 36415; 70450; 71045; 80053; 80305; 80320; 81003; 83605; 83735; 84484; 85025; 85610; 93005; 96365; 96366; 96367; 99285; J1953; J3480; J7060; G0480

== ENCOUNTER 2019-10-25 05:52 | Inpatient (IN) | payer OTHER ==
[~2019-10-25] VITALS: Ht 175.3 cm; Wt 68.0 kg
[2019-10-25] MEDS ORDERED: LEVETIRACETAM 1000MG/100ML 100 ML IV ONE (06:30)
[2019-10-25 06:44] LABS: HEMATOCRIT. 36.4 % (42.0-52.0); HEMOGLOBIN. 12.2 g/dL (14.0-18.0); MEAN CORPUSCULAR HEMOGLOBIN 30.8 pg (28.0-32.0); MEAN CORPUSCULAR VOLUME 91.5 fL (80.0-94.0); RED BLOOD CELL COUNT 3.98 mill/uL (4.7-6.1); RED CELL DISTRIBUTION WIDTH 17.4 % (11.6-14.6)
[2019-10-25 06:46] LABS: CHLORIDE 95 mEq/L (98-107)
[2019-10-25 06:50] LABS: ETHANOL BLOOD < 10 mg/dL
[2019-10-25 06:53] LABS: PLATELET 54 x1000/uL (130-400)
[2019-10-25 08:27] LABS: PLATELET ESTIMATE MARKEDLY DECREASED
[2019-10-25] MEDS ORDERED: LORAZEPAM 2MG/ML CPJ IM STA (09:36)
[2019-10-25] MEDS ORDERED: LORAZEPAM 2MG/ML CPJ ONE (09:42)
[2019-10-25] MEDS ORDERED: VANCOMYCIN 1 G PREMIX 200 ML IV ONE (09:45)
[2019-10-25] MEDS ORDERED: PIPERACILLIN/TAZ 3.375G PREMIX 50 ML IV ONE (09:45)
[2019-10-25] MEDS ORDERED: SODIUM CHLORIDE 0.9% 1000ML BAG (SEPSIS BOLUS) IV ONE (09:45)
[2019-10-25] MEDS ORDERED: PANTOPRAZOLE SODIUM 40 MG/VIAL IV ONE (11:45)
[2019-10-25] MEDS ORDERED: MORPHINE SULFATE 2 MG/ML CPJ (NOT FOR IM USE) IV PRN (11:45)
[2019-10-25] MEDS ORDERED: IPRATROPIUM/ALBUTEROL 0.5-3(2.5)MG/3ML NEB NEB PRN (11:45)
[2019-10-25] MEDS ORDERED: DIPHENHYDRAMINE 50MG/ML VIAL IV PRN (11:45)
[2019-10-25] MEDS ORDERED: LORAZEPAM 2MG/ML CPJ IV PRN (11:45)
[2019-10-25] MEDS ORDERED: PIPERACILLIN/TAZOBACTAM 3.375 G in DEXT 5% WATER 100 ML IV SCH ×2 (11:45→16:00)
[2019-10-25] MEDS ORDERED: ONDANSETRON HCL 4MG/2ML INJ IV PRN (11:45)
[2019-10-25] MEDS ORDERED: [UNRECOGNIZED DRUG - REMARK] IV SCH ×4 (12:30)
[2019-10-25 12:31] LABS: BG BASE EXCESS 1.9 mmol/L (-2.0-2.0); BG CARBOXYHEMOGLOBIN 1.4 % (0.5-1.5); BG DEOXYHEMOGLOBIN 3.8 % (0.0-5.0); BG FRACTION INSPIRED OXYGEN 21; BG HCO3 ACT 24.2 mmol/L (22.0-26.0); BG METHEMOGLOBIN 0.2 % (0.0-1.5); BG OXYGEN SATURATION 96.1 % (92.0-98.5); BG OXYHEMOGLOBIN 94.6 % (94.0-97.0); BG PCO2 31.3 mmHg (35.0-45.0); BG PH 7.506 (7.350-7.450); BG PO2 79.1 mmHg (75.0-100.0); BG SAMPLE SITE RIGHT RADIAL; BG TOTAL HEMOGLOBIN 14.5 g/dL (12.0-18.0); BG VENT MODE ROOM AIR
[2019-10-25 14:59] LABS: CREATINE KINASE 198 IU/L (39-308)
[2019-10-25 15:02] LABS: CREATINE KINASE MB FRACTION 1.9 ng/mL (0.5-3.6)
[2019-10-25] MEDS ORDERED: LEVETIRACETAM 500 MG in SODIUM CHLORIDE 0.9% 100 ML IV SCH (15:45)
[2019-10-25 17:09] LABS: INR 1.2; PROTHROMBIN TIME 12.5 sec (9.6-11.0)
[2019-10-25] MEDS ORDERED: LEVETIRACETAM 500MG PREMIX 100 ML IV SCH (21:00)
[2019-10-25] MEDS: DEXT 5%/0.9% NACL 1,000 ML IV SCH (21:39)
[2019-10-25 22:25] VITALS: BP 119/76
[2019-10-25 22:30] VITALS: BP 119/76
[2019-10-25] MEDS ORDERED: METO25TA6 PO (22:54)
[2019-10-25 23:35] LABS: CREATINE KINASE MB FRACTION 3.5 ng/mL (0.5-3.6)
[2019-10-26] VITALS (12 sets, daily range): BP systolic 109–154; BP diastolic 71–91
[2019-10-26] MEDS: PIPERACILLIN/TAZOBACTAM 3.375 G in DEXT 5% WATER 100 ML IV SCH ×3 (01:34→15:41)
[2019-10-26] MEDS: LORAZEPAM 2MG/ML CPJ IV PRN (01:35)
[2019-10-26 06:33] LABS: BASOPHILS % 0.5 % (0.0-2.0); EOSINOPHILS % 0.1 % (0.0-5.0); HEMOGLOBIN. 14.1 g/dL (14.0-18.0); LYMPHOCYTES % 11.2 % (20.0-50.0); MEAN CORPUSCULAR HEMOGLOBIN 30.8 pg (28.0-32.0); MEAN CORPUSCULAR VOLUME 91.5 fL (80.0-94.0); MEAN PLATELET VOLUME 8.9 fl (7.4-10.4); MONOCYTES % 10.4 % (2.0-8.0); NEUTROPHILS % 77.8 % (40.0-76.0); RED BLOOD CELL COUNT 4.59 mill/uL (4.7-6.1); RED CELL DISTRIBUTION WIDTH 17.3 % (11.6-14.6)
[2019-10-26] MEDS: DEXT 5%/0.9% NACL 1,000 ML IV SCH (06:33)
[2019-10-26 07:06] LABS: CHLORIDE 100 mEq/L (98-107)
[2019-10-26] MEDS ORDERED: POTASSIUM CHLORIDE IV ONE (07:45)
[2019-10-26] MEDS ORDERED: DEXT IV ONE (07:45)
[2019-10-26] MEDS ORDERED: NACL IV ONE (07:45)
[2019-10-26] MEDS: LEVETIRACETAM 500MG PREMIX 100 ML IV SCH ×2 (08:59→22:37)
[2019-10-26] MEDS ORDERED: POTASSIUM CHLORIDE INJ 50 MEQ in DEXT 5% WATER 500 ML IV NR (09:00)
[2019-10-26 14:04] LABS: PLATELET ESTIMATE DECREASED
[2019-10-26 14:06] LABS: PLATELET 45 x1000/uL (130-400)
[2019-10-26] MEDS ORDERED: MAGNESIUM 2 G PREMIX 50 ML IV NR (15:00)
[2019-10-26 15:13] LABS: CLARITY URINE CLEAR (CLEAR); COLOR URINE YELLOW (YELLOW); KETONES URINE TRACE (NEGATIVE); LEUKOCYTE ESTERASE URINE TRACE (NEGATIVE); NITRITE URINE NEGATIVE (NEGATIVE); OCCULT BLOOD URINE 3+ (NEGATIVE); PROTEIN URINE 1+ (NEGATIVE); SPECIFIC GRAVITY URINE 1.019 (1.005-1.030)
[2019-10-26 15:48] LABS: *AMPHETAMINES SCREEN URINE NEGATIVE (NEGATIVE); *BARBITURATES SCREEN URINE NEGATIVE (NEGATIVE); *BENZODIAZEPINES SCREEN URINE NEGATIVE (NEGATIVE); *COCAINE SCREEN URINE NEGATIVE (NEGATIVE); METHADONE URINE SCREEN NEGATIVE (NEGATIVE); OPIATES URINE SCREEN NEGATIVE (NEGATIVE)
[2019-10-26 15:50] LABS: CANNABINOID URINE SCREEN NEGATIVE (NEGATIVE); PHENCYCLIDINE URINE SCREEN NEGATIVE (NEGATIVE)
[2019-10-26] MEDS: LEVOFLOXACIN 250MG PREMIX 50 ML IV SCH (20:28)
[2019-10-26] MEDS: ATORVASTATIN CALCIUM 40MG TABLET PO SCH (21:00)
[2019-10-26] MEDS: [UNRECOGNIZED DRUG - REMARK] IV SCH ×4 (22:35)
[2019-10-27] VITALS (12 sets, daily range): BP systolic 98–141; BP diastolic 63–86
[2019-10-27 07:20] LABS: HEMATOCRIT 41.2 % (42.0-52.0); MEAN CORPUSCULAR HEMOGLOBIN 30.8 pg (28.0-32.0); MEAN CORPUSCULAR VOLUME 90.7 fL (80.0-94.0); PLATELET 57 x1000/uL (130-400); RED BLOOD CELL COUNT 4.55 mill/uL (4.7-6.1); RED CELL DISTRIBUTION WIDTH 17.3 % (11.6-14.6)
[2019-10-27 07:26] LABS: CHLORIDE 102 mEq/L (98-107)
[2019-10-27] MEDS: LEVETIRACETAM 500MG PREMIX 100 ML IV SCH ×2 (08:42→21:10)
[2019-10-27] MEDS ORDERED: POTASSIUM CHLORIDE INJ 40 MEQ in DEXT 5% WATER 250 ML IV NR (09:30)
[2019-10-27 12:47] LABS: CREATINE KINASE 221 IU/L (39-308)
[2019-10-27 12:49] LABS: CREATINE KINASE MB FRACTION < 1.0 ng/mL (0.5-3.6)
[2019-10-27] MEDS: [UNRECOGNIZED DRUG - REMARK] IV SCH ×4 (13:07)
[2019-10-27] MEDS ORDERED: KCL 20MEQ/100ML PREMIX 100 ML IV NR (14:00)
[2019-10-27] MEDS: LEVOFLOXACIN 250MG PREMIX 50 ML IV SCH (18:58)
[2019-10-27] MEDS: ATORVASTATIN CALCIUM 40MG TABLET PO SCH (21:11)
[2019-10-27] MEDS: LORAZEPAM 2MG/ML CPJ IV PRN (23:31)
[2019-10-28] VITALS (12 sets, daily range): BP systolic 111–136; BP diastolic 60–91
[2019-10-28] MEDS ORDERED: POTASSIUM CHLORIDE INJ 40 MEQ in DEXT 5% WATER 250 ML IV NR ×2
[2019-10-28 06:24] LABS: HEMATOCRIT 36.9 % (42.0-52.0); HEMOGLOBIN 12.5 g/dL (14.0-18.0); MEAN CORPUSCULAR HEMOGLOBIN 30.8 pg (28.0-32.0); MEAN CORPUSCULAR VOLUME 90.5 fL (80.0-94.0); RED BLOOD CELL COUNT 4.07 mill/uL (4.7-6.1); RED CELL DISTRIBUTION WIDTH 17.5 % (11.6-14.6)
[2019-10-28 06:27] LABS: CHLORIDE 108 mEq/L (98-107)
[2019-10-28 06:33] LABS: PLATELET 41 x1000/uL (130-400)
[2019-10-28 06:35] LABS: LDL CHOLESTEROL 57 mg/dL (5-100)
[2019-10-28 06:37] LABS: HDL CHOLESTEROL 53 mg/dL (40-59)
[2019-10-28] MEDS: LEVETIRACETAM 500MG PREMIX 100 ML IV SCH ×2 (09:00→20:29)
[2019-10-28] MEDS: DEXT 5%/0.9% NACL 1,000 ML IV SCH ×2 (09:06→09:08)
[2019-10-28] MEDS ORDERED: POTASSIUM CHLORIDE 20MEQ TABLET SR PO NR (11:00)
[2019-10-28] MEDS: [UNRECOGNIZED DRUG - REMARK] IV SCH ×8 (13:26→23:38)
[2019-10-28] MEDS ORDERED: KEPP500 MT (14:40)
[2019-10-28] MEDS: ATORVASTATIN CALCIUM 40MG TABLET PO SCH (20:29)
[2019-10-28] MEDS: LORAZEPAM 2MG/ML CPJ IV PRN (23:49)
[2019-10-29] VITALS (10 sets, daily range): BP systolic 117–147; BP diastolic 69–89
[2019-10-29 06:51] LABS: HEMATOCRIT 36.4 % (42.0-52.0); HEMOGLOBIN 12.4 g/dL (14.0-18.0); MEAN CORPUSCULAR HEMOGLOBIN 31.1 pg (28.0-32.0); MEAN CORPUSCULAR VOLUME 91.2 fL (80.0-94.0); RED BLOOD CELL COUNT 3.99 mill/uL (4.7-6.1); RED CELL DISTRIBUTION WIDTH 16.9 % (11.6-14.6)
[2019-10-29 07:03] LABS: CHLORIDE 110 mEq/L (98-107)
[2019-10-29] MEDS: LEVETIRACETAM 500MG PREMIX 100 ML IV SCH (08:21)
[2019-10-29] MEDS ORDERED: POTASSIUM CHLORIDE 20MEQ TABLET SR PO SCH (10:00)
[2019-10-29] MEDS ORDERED: LEVOFLOXACIN 250MG TABLET PO SCH (11:00)
== END 2019-10-29 17:10 | disposition home health service (06) | DRG 65 ==
LOC: ER 05:52 → 5EST 10:32 → EDBEDREQSVC 10:36 → EDBEDREQ 10:36 → ENRESERV 20:08 → CANRESERV 20:08 → EDBEDREQTM 20:48 → EDBEDREQSVC 20:48 → ENRESERV 20:58
PROVIDERS: ADMIT Internal Medicine; ATTEND Internal Medicine
PROC: 4A00X4Z Measurement of Central Nervous Electrical Activity, External Approach (ICD-10-PCS; principal; 2019-10-25)
DX: I63.9 Cerebral infarction, unspecified (principal); N39.0 Urinary tract infection, site not specified; E87.2 Acidosis; E87.1 Hypo-osmolality and hyponatremia; G40.419 Other generalized epilepsy and epileptic syndromes, intractable, without status epilepticus; G93.40 Encephalopathy, unspecified; D69.6 Thrombocytopenia, unspecified; D64.9 Anemia, unspecified; E87.6 Hypokalemia; E83.42 Hypomagnesemia; I11.0 Hypertensive heart disease with heart failure; D18.03 Hemangioma of intra-abdominal structures; E78.00 Pure hypercholesterolemia, unspecified; E78.5 Hyperlipidemia, unspecified; F10.20 Alcohol dependence, uncomplicated; R62.7 Adult failure to thrive; I25.10 Atherosclerotic heart disease of native coronary artery without angina pectoris; I48.0 Paroxysmal atrial fibrillation; I50.9 Heart failure, unspecified; K76.0 Fatty (change of) liver, not elsewhere classified; R32 Unspecified urinary incontinence; Z79.01 Long term (current) use of anticoagulants; Z79.899 Other long term (current) drug therapy; Z86.718 Personal history of other venous thrombosis and embolism; Z95.2 Presence of prosthetic heart valve; Z79.2 Long term (current) use of antibiotics; Z68.22 Body mass index [BMI] 22.0-22.9, adult
CPT/HCPCS: 36415; 36600; 70551; 71045; 76700; 80048; 80053; 80061; 80305; 80320; 81003; 82140; 82375; 82550; 82553; 82805; 83605; 83735; 84132; 84145; 84443; 84484; 85025; 85027; 92610; 93005; 93880; 95816; 96365; 97116; 97162; 97166; 99291; C9113; J1953; J1956; J2060; J2543; J3370; J3411; J3475; J3480; J3490; J7030; J7042; J7060; G0480

== ENCOUNTER 2019-12-06 01:19 | Inpatient (IN) | payer OTHER ==
[~2019-12-06] VITALS: Ht 170.2 cm; Wt 64.0 kg
[~2019-12-06 01:19] MED LIST changes: -APIX2.5T MT; -APIX2.5T PO; -LEVO500T2 MT; +METO25TA6 PO; -PROT40 MT
[2019-12-06] MEDS ORDERED: SODIUM CHLORIDE 0.9% 1000ML BAG (SEPSIS BOLUS) IV ONE (01:45)
[2019-12-06] MEDS ORDERED: IBUPROFEN 600MG TABLET PO ONE (01:45)
[2019-12-06 02:10] LABS: BASOPHILS % 0.3 % (0.0-2.0); HEMATOCRIT. 41.7 % (42.0-52.0); HEMOGLOBIN. 14.2 g/dL (14.0-18.0); LYMPHOCYTES % 7.1 % (20.0-50.0); MEAN CORPUSCULAR HEMOGLOBIN 30.4 pg (28.0-32.0); MEAN CORPUSCULAR VOLUME 89.5 fL (80.0-94.0); MEAN PLATELET VOLUME 9.2 fl (7.4-10.4); MONOCYTES % 11.8 % (2.0-8.0); NEUTROPHILS % 80.8 % (40.0-76.0); PLATELET 51 x1000/uL (130-400); RED BLOOD CELL COUNT 4.66 mill/uL (4.7-6.1); RED CELL DISTRIBUTION WIDTH 16.6 % (11.6-14.6)
[2019-12-06 02:12] LABS: CHLORIDE 93 mEq/L (98-107)
[2019-12-06 02:16] LABS: ETHANOL BLOOD 18 mg/dL
[2019-12-06] MEDS ORDERED: POTASSIUM CHLORIDE 20MEQ TABLET SR PO ONE (02:30)
[2019-12-06 02:41] LABS: INR 1.3; PROTHROMBIN TIME 13.5 sec (9.6-11.0)
[2019-12-06] MEDS ORDERED: HEPARIN 25,000 UNITS PREMIX 250 ML IV PRN (03:30)
[2019-12-06] MEDS ORDERED: SODIUM CHLORIDE 0.9% 1,000 ML IV ONE (04:30)
[2019-12-06 06:19] LABS: CLARITY URINE CLEAR (CLEAR); COLOR URINE YELLOW (YELLOW); KETONES URINE NEGATIVE (NEGATIVE); LEUKOCYTE ESTERASE URINE NEGATIVE (NEGATIVE); NITRITE URINE NEGATIVE (NEGATIVE); OCCULT BLOOD URINE 2+ (NEGATIVE); PH URINE 6.5 (4.5-8.0); PROTEIN URINE NEGATIVE (NEGATIVE); SPECIFIC GRAVITY URINE 1.004 (1.005-1.030)
[2019-12-06 11:58] VITALS: BP 126/81
[2019-12-06 12:00] VITALS: BP 123/80
[2019-12-06 13:11] VITALS: BP 141/78
[2019-12-06 13:41] LABS: CHLORIDE 105 mEq/L (98-107)
[2019-12-06] MEDS ORDERED: ONDANSETRON HCL 4MG/2ML INJ IV PRN (15:00)
[2019-12-06] MEDS ORDERED: ACETAMINOPHEN 325MG TABLET PO PRN (15:00)
[2019-12-06] MEDS ORDERED: HYDROCODONE/ACETAMINOPHEN 5/325MG TABLET PO PRN (15:00)
[2019-12-06] MEDS ORDERED: IPRATROPIUM/ALBUTEROL 0.5-3(2.5)MG/3ML NEB HHN PRN (15:00)
[2019-12-06] MEDS: LEVOFLOXACIN 500MG PREMIX 100 ML IV SCH (15:27)
[2019-12-06] MEDS ORDERED: POTASSIUM CHLORIDE 20MEQ TABLET SR PO SCH (15:30)
[2019-12-06 16:00] VITALS: BP 119/69
[2019-12-06 20:00] VITALS: BP 100/57
[2019-12-06] MEDS: LEVETIRACETAM 500MG TABLET PO SCH (20:45)
[2019-12-07] VITALS: BP 101/62
[2019-12-07 01:11] LABS: CREATINE KINASE MB FRACTION 2.6 ng/mL (0.5-3.6)
[2019-12-07 04:00] VITALS: BP 103/59
[2019-12-07 06:32] LABS: HEMATOCRIT. 35.7 % (42.0-52.0); HEMOGLOBIN. 12.4 g/dL (14.0-18.0); MEAN CORPUSCULAR HEMOGLOBIN 31.2 pg (28.0-32.0); MEAN CORPUSCULAR VOLUME 89.5 fL (80.0-94.0); RED BLOOD CELL COUNT 3.99 mill/uL (4.7-6.1); RED CELL DISTRIBUTION WIDTH 16.4 % (11.6-14.6)
[2019-12-07 06:50] LABS: CHLORIDE 104 mEq/L (98-107)
[2019-12-07 07:04] LABS: CREATINE KINASE 101 IU/L (39-308)
[2019-12-07 07:05] LABS: HDL CHOLESTEROL 27 mg/dL (40-59); LDL CHOLESTEROL 68 mg/dL (5-100)
[2019-12-07 07:08] LABS: T4 FREE 1.45 ng/dL (0.76-1.46)
[2019-12-07 08:00] VITALS: BP 115/64
[2019-12-07] MEDS: ASPIRIN 81MG TABLET PO SCH (08:16)
[2019-12-07] MEDS: LEVETIRACETAM 500MG TABLET PO SCH ×2 (08:16→21:18)
[2019-12-07 10:25] LABS: PLATELET ESTIMATE DECREASED
[2019-12-07 11:47] VITALS: BP 99/47
[2019-12-07] MEDS ORDERED: POTASSIUM CHLORIDE 20MEQ TABLET SR PO SCH (14:45)
[2019-12-07] MEDS ORDERED: CLONIDINE 0.1MG TABLET PO PRN (15:15)
[2019-12-07] MEDS ORDERED: LORAZEPAM 2MG/ML CPJ IV PRN (15:15)
[2019-12-07 16:00] VITALS: BP 131/79
[2019-12-07] MEDS: LEVOFLOXACIN 500MG PREMIX 100 ML IV SCH (16:03)
[2019-12-07] MEDS: MULTIVITAMINS,THER W-MINERALS TABLET PO SCH (16:04)
[2019-12-07] MEDS: FOLIC ACID 1MG TABLET PO SCH (16:04)
[2019-12-07] MEDS: THIAMINE HCL 100MG TABLET PO SCH (16:05)
[2019-12-07] MEDS ORDERED: LEVOFLOXACIN 500MG PREMIX 100 ML IV SCH (17:00)
[2019-12-07 20:00] VITALS: BP 105/66
[2019-12-08] VITALS (12 sets, daily range): BP systolic 85–160; BP diastolic 49–80
[2019-12-08] MEDS: MULTIVITAMINS,THER W-MINERALS TABLET PO SCH (08:49)
[2019-12-08] MEDS: THIAMINE HCL 100MG TABLET PO SCH (08:49)
[2019-12-08] MEDS: LEVETIRACETAM 500MG TABLET PO SCH ×2 (08:49→20:34)
[2019-12-08] MEDS: FOLIC ACID 1MG TABLET PO SCH (08:49)
[2019-12-08] MEDS: ASPIRIN 81MG TABLET PO SCH (08:49)
[2019-12-08 09:27] LABS: HEMATOCRIT 39.1 % (42.0-52.0); HEMOGLOBIN 13.3 g/dL (14.0-18.0); MEAN CORPUSCULAR HEMOGLOBIN 30.6 pg (28.0-32.0); MEAN CORPUSCULAR VOLUME 89.7 fL (80.0-94.0); PLATELET 66 x1000/uL (130-400); RED BLOOD CELL COUNT 4.35 mill/uL (4.7-6.1); RED CELL DISTRIBUTION WIDTH 16.5 % (11.6-14.6)
[2019-12-08 09:38] LABS: CHLORIDE 100 mEq/L (98-107)
[2019-12-08] MEDS ORDERED: POTASSIUM CHLORIDE 20MEQ TABLET SR PO SCH (12:30)
[2019-12-08] MEDS ORDERED: ASPI-1497 MT (15:37)
[2019-12-08] MEDS: LEVOFLOXACIN 500MG PREMIX 100 ML IV SCH (16:01)
[2019-12-09] VITALS: BP 103/79
[2019-12-09 04:00] VITALS: BP_SYST 102; BP_SYST 136; BP_SYST 97; BP_DIAS 64; BP_DIAS 69; BP_DIAS 73
[2019-12-09 08:00] VITALS: BP 124/78
[2019-12-09] MEDS: THIAMINE HCL 100MG TABLET PO SCH (09:28)
[2019-12-09] MEDS: LEVETIRACETAM 500MG TABLET PO SCH (09:28)
[2019-12-09] MEDS: FOLIC ACID 1MG TABLET PO SCH (09:28)
[2019-12-09] MEDS: ASPIRIN 81MG TABLET PO SCH (09:28)
[2019-12-09] MEDS: MULTIVITAMINS,THER W-MINERALS TABLET PO SCH (09:29)
[2019-12-09] MEDS ORDERED: LEVO500T2 MT (10:31)
[2019-12-09] MEDS ORDERED: LIP40 MT (11:21)
[2019-12-09 12:00] VITALS: BP 108/70
[2019-12-09 16:00] VITALS: BP 125/63
[2019-12-09] MEDS: LEVOFLOXACIN 500MG PREMIX 100 ML IV SCH (16:11)
[2019-12-09 16:51] VITALS: BP 125/63
== END 2019-12-09 18:02 | disposition home or self-care (01) | DRG 280 ==
LOC: ER 01:19 → 5EST 03:14 → EDBEDREQSVC 03:21 → EDBEDREQTM 03:21 → EDBEDREQ 03:21 → ENRESERV 10:13 → ER 10:52 → 7WST 13:52 → 5WST 12-07 15:48
PROVIDERS: ADMIT Internal Medicine; ATTEND Internal Medicine
DX: I21.4 Non-ST elevation (NSTEMI) myocardial infarction (principal); G93.41 Metabolic encephalopathy; E87.2 Acidosis; I82.509 Chronic embolism and thrombosis of unspecified deep veins of unspecified lower extremity; G40.409 Other generalized epilepsy and epileptic syndromes, not intractable, without status epilepticus; I11.0 Hypertensive heart disease with heart failure; D69.6 Thrombocytopenia, unspecified; I50.9 Heart failure, unspecified; E78.5 Hyperlipidemia, unspecified; F10.10 Alcohol abuse, uncomplicated; I35.0 Nonrheumatic aortic (valve) stenosis; I48.0 Paroxysmal atrial fibrillation; Z20.828 Contact with and (suspected) exposure to other viral communicable diseases; E78.00 Pure hypercholesterolemia, unspecified; E87.6 Hypokalemia; I27.20 Pulmonary hypertension, unspecified; D64.9 Anemia, unspecified; Y90.9 Presence of alcohol in blood, level not specified; Z95.2 Presence of prosthetic heart valve; Z79.899 Other long term (current) drug therapy; Z86.73 Personal history of transient ischemic attack (TIA), and cerebral infarction without residual deficits; Z91.19 Patient's noncompliance with other medical treatment and regimen
CPT/HCPCS: 36415; 71045; 80048; 80053; 80061; 80320; 81003; 82550; 82553; 83605; 84145; 84439; 84443; 84484; 85025; 85027; 87635; 93005; 93306; 97162; 99291; J1644; J1956; J7030; G0480

== ENCOUNTER 2020-02-25 18:11 | Emergency (ER) | payer OTHER ==
[~2020-02-25] VITALS: Ht 175.3 cm; Wt 60.0 kg
[~2020-02-25 18:11] MED LIST changes: -AMLO5TAB88 MT; -BUME2TAB34 MT; -DONE5TAB33 MT; +LIP40 MT; -METO25TA6 PO
[2020-02-25 20:10] LABS: EOSINOPHILS % 1.3 % (0.0-5.0); HEMATOCRIT. 39.9 % (42.0-52.0); HEMOGLOBIN. 13.4 g/dL (14.0-18.0); LYMPHOCYTES % 17.5 % (20.0-50.0); MEAN CORPUSCULAR HEMOGLOBIN 30.4 pg (28.0-32.0); MEAN CORPUSCULAR VOLUME 90.4 fL (80.0-94.0); MONOCYTES % 13.2 % (2.0-8.0); RED BLOOD CELL COUNT 4.41 mill/uL (4.7-6.1); RED CELL DISTRIBUTION WIDTH 15.3 % (11.6-14.6)
[2020-02-25 20:16] LABS: CHLORIDE 107 mEq/L (98-107)
[2020-02-25 20:23] LABS: INR 1.1; PARTIAL THROMBOPLASTIN TIME 29.9 sec (23.4-31.0); PROTHROMBIN TIME 11.9 sec (9.6-11.0)
[2020-02-25 23:18] LABS: BASOPHILS % 0.8 % (0.0-2.0); EOSINOPHILS % 1.4 % (0.0-5.0); HEMATOCRIT. 36.7 % (42.0-52.0); HEMOGLOBIN. 12.6 g/dL (14.0-18.0); LYMPHOCYTES % 19.9 % (20.0-50.0); MEAN CORPUSCULAR HEMOGLOBIN 30.7 pg (28.0-32.0); MEAN CORPUSCULAR VOLUME 89.6 fL (80.0-94.0); MEAN PLATELET VOLUME 8.5 fl (7.4-10.4); MONOCYTES % 13.3 % (2.0-8.0); NEUTROPHILS % 64.6 % (40.0-76.0); PLATELET 77 x1000/uL (130-400); RED BLOOD CELL COUNT 4.09 mill/uL (4.7-6.1); RED CELL DISTRIBUTION WIDTH 15.3 % (11.6-14.6)
[2020-02-26 03:01] VITALS: BP 139/82
== END 2020-02-26 03:24 | disposition home or self-care (01) ==
LOC: ER 18:11 → ENRESERV 02-26 01:29 → CANBEDREQ 02-26 01:35 → ER 02-26 03:24
DX: D69.6 Thrombocytopenia, unspecified (principal); I11.0 Hypertensive heart disease with heart failure; I50.9 Heart failure, unspecified; F03.90 Unspecified dementia, unspecified severity, without behavioral disturbance, psychotic disturbance, mood disturbance, and anxiety; E78.00 Pure hypercholesterolemia, unspecified; R56.9 Unspecified convulsions; I25.10 Atherosclerotic heart disease of native coronary artery without angina pectoris; Z86.73 Personal history of transient ischemic attack (TIA), and cerebral infarction without residual deficits; Z86.718 Personal history of other venous thrombosis and embolism
CPT/HCPCS: 36415; 71045; 80053; 85025; 86850; 86900; 93005; 99285

== ENCOUNTER 2020-02-26 22:52 | Emergency (ER) | payer OTHER ==
[~2020-02-26] VITALS: Ht 180.3 cm; Wt 69.0 kg
[2020-02-27 01:55] VITALS: BP 139/74
== END 2020-02-27 02:56 ==
LOC: ER 22:52
DX: S00.03XA Contusion of scalp, initial encounter (principal); W01.0XXA Fall on same level from slipping, tripping and stumbling without subsequent striking against object, initial encounter; Y93.89 Activity, other specified; Y92.89 Other specified places as the place of occurrence of the external cause; Y99.8 Other external cause status; I11.0 Hypertensive heart disease with heart failure; I50.9 Heart failure, unspecified; E78.00 Pure hypercholesterolemia, unspecified; F10.129 Alcohol abuse with intoxication, unspecified; Y90.0 Blood alcohol level of less than 20 mg/100 ml; Z79.899 Other long term (current) drug therapy
CPT/HCPCS: 99285

== ENCOUNTER 2020-03-22 13:36 | Emergency (ER) | payer OTHER ==
[~2020-03-22] VITALS: Ht 162.6 cm; Wt 54.0 kg
[2020-03-22 16:45] LABS: HEMATOCRIT. 40.7 % (42.0-52.0); HEMOGLOBIN. 13.3 g/dL (14.0-18.0); MEAN CORPUSCULAR HEMOGLOBIN 28.1 pg (28.0-32.0); MEAN CORPUSCULAR VOLUME 85.9 fL (80.0-94.0); MEAN PLATELET VOLUME 8.4 fl (7.4-10.4); PLATELET 111 x1000/uL (130-400); RED BLOOD CELL COUNT 4.74 mill/uL (4.7-6.1)
[2020-03-22 16:50] LABS: CHLORIDE 108 mEq/L (98-107)
[2020-03-22 18:00] LABS: PLATELET ESTIMATE DECREASED
[2020-03-22] MEDS ORDERED: LEVETIRACETAM 500MG TABLET PO ONE (23:45)
[2020-03-22 23:55] VITALS: BP 121/71
== END 2020-03-22 23:59 | disposition home or self-care (01) ==
LOC: ER 13:36
DX: G40.909 Epilepsy, unspecified, not intractable, without status epilepticus (principal); H54.7 Unspecified visual loss; I10 Essential (primary) hypertension; E78.00 Pure hypercholesterolemia, unspecified; Z86.73 Personal history of transient ischemic attack (TIA), and cerebral infarction without residual deficits; Z74.01 Bed confinement status
CPT/HCPCS: 36415; 71045; 80053; 85025; 93005; 99285